=== PATIENT | female | born 1940 | race Caucasian/White ===

== ENCOUNTER 2017-04-23 11:06 | Emergency (ER) | payer MEDICARE, BC ==
[~2017-04-23] VITALS: Ht 170.2 cm; Wt 63.0 kg
[~2017-04-23 11:06] MED LIST: ARIM1TAB PO; ASPI81TA82 PO; CALC600T10 PO; CLAR10TA13 PO; FOSA70TA PO; GABA600T PO; LEFL20 PO; MELO15 PO; VITA20003 PO; ZOCO40TA PO; ZOLP10TA3 PO
[2017-04-23 11:11] VITALS: BP 140/78; PULSE 101; RESP 16; TEMP 97.9; O2SAT 99
[2017-04-23] MEDS ORDERED: ARAV10TA PO (11:27)
[2017-04-23] MEDS ORDERED: GABA600T PO (11:27)
[2017-04-23] MEDS ORDERED: BENI40TA29 PO (11:27)
[2017-04-23] MEDS ORDERED: MAG-TAB PO (11:27)
[2017-04-23] MEDS ORDERED: MELO15TA20 PO (11:27)
[2017-04-23] MEDS ORDERED: HYDR25TA5 PO (11:27)
[2017-04-23] MEDS ORDERED: CLARITAN D (11:27)
[2017-04-23] MEDS ORDERED: CALC1TAB87 PO (11:27)
[2017-04-23] MEDS ORDERED: ATOR20TA15 PO (11:27)
[2017-04-23] MEDS ORDERED: ANAS1TAB PO (11:27)
[2017-04-23] MEDS ORDERED: AMLO2.5T PO (11:27)
[2017-04-23] MEDS ORDERED: FOSA70TA PO (11:27)
[2017-04-23] MEDS ORDERED: AMBI10TA PO (11:27)
[2017-04-23] MEDS ORDERED: KETOROLAC TROMETHAMINE 60 MG/2 ML (IM) VIAL IM ONE (12:00)
[2017-04-23] MEDS ORDERED: ORPHENADRINE INJ 60 MG/2 ML AMP IM ONE (12:00)
[2017-04-23] MEDS ORDERED: NORC5TAB PO ×2 (12:09→12:12)
[2017-04-23] MEDS ORDERED: CYCL10TA PO (12:09)
--- NOTE | 2017-04-23 12:13 | PD ---
HPI Chief Complaint: Back/ Neck Pain or Injury Time Seen by Provider: 11:48 Travel History International Travel<30 days: No Contact w/Intl Traveler<30days: No Traveled to known affect area: No History of Present Illness HPI This is a 76-year-old female here with low back pain worsening over the last 3 days. She reports the pain as aching and radiates down into the right leg. This is similar to her previous to her sciatica. No injury or trauma. Patient has a history of chronic low back pain and currently has a nerve stimulator in place. She denies fever or chills. No abdominal pain or dysuria. No paresthesia or weakness of the extremities. No saddle anesthesia . She reports this pain is similar to her prior acute back pain flares. She is not currently on any pain medication. She is followed by [facility] in [place] for her chronic back pain. Symptom severity is moderate. No aggravating or alleviating factors. PFSH Past Medical History Cancer: Yes (BREAST CANCER) Cardiovascular Problems: Yes (HIGH CHOLESTEROL) Diabetes: No Diminished Hearing: No Endocrine: No Gastrointestinal Disorders: No Genitourinary: No Hepatitis: No Hiatal Hernia: No Hypertension: Yes Immune Disorder: No Medical other: No Musculoskeletal: No Neurologic: No Psychiatric: No Reproductive: No Respiratory: No Thyroid Disease: No Tetanus Vaccination: Unknown ?: Not Past Surgical History Abdominal Surgery: Yes (APPENDECTOMY) AICD: No Body Medical Devices: RIGHT FEMUR JOANIE Cardiac Surgery: No Ear Surgery: No Endocrine Surgery: Yes Eye Surgery: Yes (CATARACT) Gynecologic Surgery: No Joint Replacement: Yes (BILATERAL KNEE REPLACEMENTS) Neurologic Surgery: No Oral Surgery: No Pacemaker: No Thoracic Surgery: No Social History Alcohol Use: No Tobacco Use: No Substance Use: No Allergies-Medications (Allergen,Severity, Reaction): Coded Allergies: No Known Allergies (Unverified Adverse Reaction, Unknown, 04/23/17) Reported Meds & Prescriptions Reported Meds & Active Scripts Active Reported Mag-Delay (Magnesium Chloride) 70 Mg Magnesium Tab 64 Mg PO DAILY Gabapentin 600 Mg Tab 600 Mg PO TID Amlodipine (Amlodipine Besylate) 2.5 Mg Tab 2.5 Mg PO DAILY Hydrochlorothiazide 25 Mg Tab 25 Mg PO DAILY Anastrozole 1 Mg Tab 1 Mg PO DAILY Calcium 600 with Vitamin D (Calcium Carbonate-Cholecalciferol) 600-400 mg-Unit Tab 1 Tab PO DAILY Ambien (Zolpidem Tartrate) 10 Mg Tab 10 Mg PO HS PRN Atorvastatin (Atorvastatin Calcium) 20 Mg Tab 20 Mg PO HS Meloxicam 15 Mg Tab 15 Mg PO DAILY [Claritan D] Arava (Leflunomide) 10 Mg Tab 10 Mg PO DAILY Benicar (Olmesartan) 40 Mg Tab 40 Mg PO DAILY Fosamax (Alendronate Sodium) 70 Mg Tab 70 Mg PO Q7D Review of Systems Except as stated in HPI: all other systems reviewed are Neg General / Constitutional: No: Fever Physical Exam Narrative GENERAL: Alert and well-appearing 76-year-old female. Patient is lying on stretcher. No distress. SKIN: Warm and dry. No areas of warmth or erythema. HEAD: Normocephalic. EYES: No injection or drainage. NECK: Supple CARDIOVASCULAR: Regular rate and rhythm RESPIRATORY: Breath sounds equal bilaterally. No accessory muscle use. GASTROINTESTINAL: Abdomen soft, non-tender, nondistended. MUSCULOSKELETAL: No cyanosis, or edema. Normal strength and sensation in lower extremities. Patient ambulating with cane without difficulty. BACK: Reported generalized low back pain without specific point tenderness. Without obvious deformity. No CVA tenderness. Implanted Nerve stimulator left low back without evidence of overlying infection. Data Data Last Documented VS Vital Signs Date Time Temp Pulse Resp B/P (MAP) Pulse Ox O2 Delivery O2 Flow Rate FiO2 04/23/17 11:11 97.9 101 16 140/78 (98) 99 Orders Orders Ketorolac Inj (Toradol Inj) (04/23/17 12:00) Orphenadrine Inj (Norflex Inj) (04/23/17 12:00) [facility] Medical Decision Making Medical Screen Exam Complete: Yes Emergency Medical Condition: Yes Differential Diagnosis Acute low back pain, sciatica, herniated disc Narrative Course This 76-year-old female here with worsening low back pain over the last 3 days. She has a normal neurologic exam. Her vital signs are stable. She'll be treated for sciatica. He has a follow-up appointment scheduled on Wednesday. She was given a shot of Toradol, Norflex and observed. On reassessment she reports mild symptom improvement. She reports she's had symptom improvement in the past with chronic pain medications and/or muscle relaxers. Diagnosis Primary Impression: Low back pain Qualified Codes: M54.41 - Lumbago with sciatica, right side Referrals: Primary Care Physician Additional Instructions: Continue your meloxicam as directed. Begin taking Flexeril which is a muscle relaxer as needed for muscle spasm. Take Deal as needed for severe pain unrelieved by the meloxicam and Flexeril. Follow-up at your scheduled appointment on Wednesday. Scripts Hydrocodone-Acetaminophen (Deal) 5 Mg-325 Mg Tab 1 TAB PO Q6H Y for PAIN, #12 TAB 0 Refills Prov: Clarissa Davis 04/23/17 Cyclobenzaprine (Flexeril) 10 Mg Tab 10 MG PO TID for Muscle Spasm, #12 TAB 0 Refills Prov: Clarissa Davis 04/23/17 Disposition: 01 DISCHARGE HOME Condition: Stable Clarissa Davis Apr 23, 2017 12:13
== END 2017-04-23 12:39 | disposition home or self-care (01) ==
LOC: PHEFT 11:06
DX: M54.41 Lumbago with sciatica, right side (principal); G89.29 Other chronic pain; E78.00 Pure hypercholesterolemia, unspecified; I10 Essential (primary) hypertension; Z85.3 Personal history of malignant neoplasm of breast
CPT/HCPCS: 96372; 99283; J1885; J2360

== ENCOUNTER 2017-07-14 15:57 | Emergency (ER) | payer MEDICARE, BC ==
[~2017-07-14] VITALS: Ht 165.1 cm; Wt 63.6 kg
[~2017-07-14 15:57] MED LIST changes: +AMBI10TA PO; +AMLO2.5T PO; +ANAS1TAB PO; +ARAV10TA PO; -ARIM1TAB PO; -ASPI81TA82 PO; +ATOR20TA15 PO; +BENI40TA29 PO; +CALC1TAB87 PO; -CALC600T10 PO; -CLAR10TA13 PO; +CLARITAN D; +CYCL10TA PO; +HYDR25TA5 PO; -LEFL20 PO; +MAG-TAB PO; -MELO15 PO; +MELO15TA20 PO; +NORC5TAB PO; -VITA20003 PO; -ZOCO40TA PO; -ZOLP10TA3 PO
[2017-07-14 16:02] VITALS: BP 151/74; PULSE 113; RESP 22; TEMP 97.7; O2SAT 98
[2017-07-14] MEDS ORDERED: MORPHINE SULFATE 4 MG/ML INJ IV PUSH ONE (16:30)
[2017-07-14] MEDS ORDERED: ONDANSETRON ODT 4 MG TAB PO ONE (16:30)
--- NOTE | 2017-07-14 16:34 | PD ---
HPI Chief Complaint: Back/ Neck Pain or Injury Time Seen by Provider: 16:08 Travel History International Travel<30 days: No Contact w/Intl Traveler<30days: No Traveled to known affect area: No History of Present Illness HPI This is a 76-year-old female with chronic lower back pain who presents for evaluation of lower back pain. She reports history of several lumbar fusion surgeries greater than 5 years ago. She reports that she had a spinal cord stimulator implanted in August 2016 at the [facility]. She reports over the past 3 days she has had worsening lower back pain that radiates into the left lower leg. The pain is sharp, constant, worse with movement. Pain is unrelieved with gabapentin, Flexeril, hydrocodone, meloxicam. She reports that 2 days ago she had her first appointment with a new banner painter, Dr. Hamilton in [place]. She denies any acute injury. She reports some chronic urinary incontinence but denies any acute incontinence. She denies any incontinence of stool. She denies any saddle anesthesia. She denies any abdominal pain, dysuria, fevers or chills. She has no other complaints at this time. Her primary care physician is Dr. Darling. [facility] Past Medical History Cancer: Yes (BREAST CANCER, RIGHT LUMPECTOMY) Cardiovascular Problems: Yes (HTN, HYPERCHOLESTEROLEMIA) Diabetes: No Diminished Hearing: No Endocrine: No Gastrointestinal Disorders: No Genitourinary: No Hepatitis: No Hiatal Hernia: No Hypertension: Yes Immune Disorder: No Musculoskeletal: No Neurologic: No Psychiatric: No Reproductive: No Respiratory: No Thyroid Disease: No ?: Not Past Surgical History Abdominal Surgery: Yes (APPENDECTOMY) AICD: No Body Medical Devices: RIGHT FEMUR JOANIE Cardiac Surgery: No Ear Surgery: No Endocrine Surgery: Yes Eye Surgery: Yes (CATARACT) Gynecologic Surgery: No Joint Replacement: Yes (BILATERAL KNEE REPLACEMENTS) Neurologic Surgery: No Oral Surgery: No Pacemaker: No Thoracic Surgery: No Other Surgery: Yes Social History Alcohol Use: No Tobacco Use: No Substance Use: No Allergies-Medications (Allergen,Severity, Reaction): Coded Allergies: No Known Allergies (Unverified Adverse Reaction, Unknown, 07/14/17) Reported Meds & Prescriptions Reported Meds & Active Scripts Active Lidocaine Patch 12 HR (Lidocaine) 5 % Patch 1 Patch TOPICAL DAILY Remove patch after 12 hours [place] (Hydrocodone-Acetaminophen) 5 Mg-325 Mg Tab 1 Tab PO Q6H PRN Flexeril (Cyclobenzaprine HCl) 10 Mg Tab 10 Mg PO TID Reported Gabapentin 600 Mg Tab 600 Mg PO TID Amlodipine (Amlodipine Besylate) 2.5 Mg Tab 2.5 Mg PO DAILY Hydrochlorothiazide 25 Mg Tab 25 Mg PO DAILY Anastrozole 1 Mg Tab 1 Mg PO DAILY Calcium 600 with Vitamin D (Calcium Carbonate-Cholecalciferol) 600-400 mg-Unit Tab 1 Tab PO DAILY Ambien (Zolpidem Tartrate) 10 Mg Tab 10 Mg PO HS PRN Atorvastatin (Atorvastatin Calcium) 20 Mg Tab 20 Mg PO HS Meloxicam 15 Mg Tab 15 Mg PO DAILY [Claritan D] Arava (Leflunomide) 10 Mg Tab 10 Mg PO DAILY Benicar (Olmesartan) 40 Mg Tab 40 Mg PO DAILY Fosamax (Alendronate Sodium) 70 Mg Tab 70 Mg PO Q7D Review of Systems Except as stated in HPI: all other systems reviewed are Neg Physical Exam Narrative GENERAL: Well-developed well-nourished female who appears uncomfortable on initial examination. SKIN: Warm and dry. Old surgical scars noted on the back. No rash. HEAD: Atraumatic. Normocephalic. EYES: Pupils equal and round. No scleral icterus. No injection or drainage. ENT: No nasal bleeding or discharge. Mucous membranes pink and moist. NECK: Trachea midline. No JVD. CARDIOVASCULAR: Regular rate and rhythm. No murmur appreciated. RESPIRATORY: No accessory muscle use. Clear to auscultation. Breath sounds equal bilaterally. GASTROINTESTINAL: Abdomen soft, non-tender, nondistended. Hepatic and splenic margins not palpable. MUSCULOSKELETAL: No obvious deformities. There is some tenderness to palpation to the left lumbosacral region. There is no tenderness to palpation along the cervical thoracic lumbar midline spine. The patient maintains 5 out of 5 muscle strength on hip flexion and extension, leg flexion and extension, dorsi and plantar flexion bilaterally. There is no lower extremity edema. 2+ dorsalis pedis pulse bilaterally. 2+ posterior tibial pulse bilaterally. Negative Homans bilaterally. NEUROLOGICAL: Awake and alert. No obvious cranial nerve deficits. Motor grossly within normal limits. Normal speech. Data Data Last Documented VS Vital Signs Date Time Temp Pulse Resp B/P (MAP) Pulse Ox O2 Delivery O2 Flow Rate FiO2 07/14/17 16:35 17 07/14/17 16:02 97.7 113 151/74 (99) [address] Lumb Spine W/O Contrast (07/14/17 ) Complete Blood Count With Diff (07/14/17 16:29) Basic Metabolic Panel (Bmp) (07/14/17 16:29) Iv Access Insert/Monitor (07/14/17 16:29) Morphine Inj (Morphine Inj) (07/14/17 16:30) Ondansetron Odt (Zofran Odt) (07/14/17 16:30) Orphenadrine Inj (Norflex Inj) (07/14/17 19:30) Dexamethasone Inj (Decadron Inj) (07/14/17 19:30) Ed Discharge Order (07/14/17 19:27) Labs Laboratory Tests Test 07/14/17 16:50 White Blood Count 5.1 TH/MM3 Red Blood Count 4.12 MIL/MM3 Hemoglobin 13.0 GM/DL Hematocrit 38.1 % Mean Corpuscular Volume 92.5 FL Mean Corpuscular Hemoglobin 31.4 PG Mean Corpuscular Hemoglobin Concent 34.0 % Red Cell Distribution Width 14.2 % Platelet Count 271 TH/MM3 Mean Platelet Volume 8.9 FL Neutrophils (%) (Auto) 71.7 % Lymphocytes (%) (Auto) 17.7 % Monocytes (%) (Auto) 9.4 % Eosinophils (%) (Auto) 0.2 % Basophils (%) (Auto) 1.0 % Neutrophils # (Auto) 3.6 TH/MM3 Lymphocytes # (Auto) 0.9 TH/MM3 Monocytes # (Auto) 0.5 TH/MM3 Eosinophils # (Auto) 0.0 TH/MM3 Basophils # (Auto) 0.1 TH/MM3 CBC Comment AUTO DIFF Differential Comment AUTO DIFF CONFIRMED Blood Urea Nitrogen 19 MG/DL Creatinine 0.92 MG/DL Random Glucose 98 MG/DL Calcium Level 9.4 MG/DL Sodium Level 135 MEQ/L Potassium Level 3.8 MEQ/L Chloride Level 98 MEQ/L Carbon Dioxide Level 26.8 MEQ/L Anion Gap 10 MEQ/L Estimat Glomerular Filtration Rate 60 ML/MIN MDM Medical Decision Making Medical Screen Exam Complete: Yes Emergency Medical Condition: Yes Medical Record Reviewed: Yes Differential Diagnosis Herniated nucleus pulposus, spinal stenosis, compression fracture, piriformis syndrome, degenerative disc disease Narrative Course Physical examination is reassuring to the patient has no tenderness to palpation along the midline spine, her pain seems to be more in the left upper gluteal/lumbosacral region. Motor function is normal, she has excellent strength in her lower extremities. She has no lower extremity edema and excellent peripheral pulses. Plan is for basic lab work, CT of the lumbar spine. She was given morphine and Zofran. CT of the lumbar spine reveals CONCLUSION: 1. Postsurgical change with transpedicular screws at the L1-S1 levels. There is also anterior stabilization hardware seen at the L5-S1 level. There is lucency seen around the S1 transpedicular screws which could suggest motion at some point. 2. Alignment abnormality with associated degenerative change with posterior subluxation of L1 on L2 and anterior subluxation of L4 and L5. Surgical hardware does traverse these levels. 3. Prominent calcification seen in the anterior epidural space at the L1, L2, and L5 levels likely secondary to hypertrophic change causing impressions on the thecal sac being most prominent at the L1 level. 4. Large superficial fluid collection in the subcutaneous fat extending from the L1-S1 levels. This likely represents a large seroma. She has evidence of a superficial fluid collection in the subcutaneous fat at the L5-S1 levels. This is palpable on examination and it is nontender. There is no erythema or fluctuance or induration to suggest infectious process. She denies any recent surgeries. She does report that 2 days ago her pain management physician did injections more than her gluteal region but not in her lumbar midline region which would not explain this. At this point time the plan will be to have the patient follow-up with her primary care physician and banner painter. She will be given dose of Decadron and Norflex prior to discharge. She currently has several medications for pain control including meloxicam, gabapentin, hydrocodone acetaminophen, Flexeril. She will be discharged with Lidoderm patches. Diagnosis Primary Impression: Lumbosacral radiculopathy Additional Instructions: Medication as needed. Follow-up closely with your primary care physician and banner painter. Return for any emergent medical conditions. Med/Other Pt SpecificInfo: Prescription(s) given Scripts Lidocaine Patch 12 HR (Lidocaine Patch 12 HR) 5 % Patch 1 PATCH TOPICAL DAILY for Pain Management, #1 BOX 1 Refill Remove patch after 12 hours Prov: Kehinde Saavedra MD 07/14/17 Disposition: 01 DISCHARGE HOME Condition: Stable Felton Wilkes July 14, 2017 16:34
[2017-07-14 16:35] VITALS: RESP 17
[2017-07-14 17:06] LABS: AUTOMATED NEUTROPHIL # 3.6 TH/MM3 (1.8-7.7); BASOPHIL # 0.1 TH/MM3 (0-0.2); EOSINOPHIL % 0.2 % (0.0-4.0); HEMATOCRIT 38.1 % (35.0-46.0); LYMPH % 17.7 % (9.0-44.0); LYMPHOCYTE # 0.9 TH/MM3 (1.0-4.8); MEAN CELL VOLUME 92.5 FL (80.0-100.0); MEAN CORPUSCULAR HEMOGLOBIN 31.4 PG (27.0-34.0); MEAN PLATELET VOLUME 8.9 FL (7.0-11.0); MONO % 9.4 % (0.0-8.0); MONOCYTE # 0.5 TH/MM3 (0-0.9); NEUT % 71.7 % (16.0-70.0); PLATELET COUNT 271 TH/MM3 (150-450); RED BLOOD COUNT 4.12 MIL/MM3 (4.00-5.30); RED CELL DISTRIBUTION WIDTH 14.2 % (11.6-17.2); WHITE BLOOD COUNT 5.1 TH/MM3 (4.0-11.0)
[2017-07-14 17:33] LABS: BICARBONATE 26.8 MEQ/L (21.0-32.0); CALCIUM 9.4 MG/DL (8.5-10.1); CREATININE 0.92 MG/DL (0.50-1.00)
--- NOTE | 2017-07-14 19:16 | RADRPT ---
EXAM DATE/TIME: 07/14/2017 18:25 [facility] COMPARISON: No previous studies available for comparison. INDICATIONS : Back pain RADIATION DOSE: 35.05 CTDIvol (mGy) MEDICAL HISTORY : Cardiovascular disease. Breast cancer SURGICAL HISTORY : Right lumpectomy, lumbar,hip. ENCOUNTER: Initial ACUITY: 3 days PAIN SCALE: 10/10 LOCATION: Bilateral Lumbar spine TECHNIQUE: Volumetric scanning of the lumbar spine was performed. Multiplanar reconstructions in the sagittal, coronal and oblique axial planes were performed. Using automated exposure control and adjustment of the mA and/or kV according to patient size, radiation dose was kept as low as reasonably achievable t o obtain optimal diagnostic quality images. DICOM format image data is available electronically for review and comparison. FINDINGS: VERTEBRAE: There are transpedicular screws at the L1-S1 levels. There is some lucency seen around the S1 screws bilaterally. There is anterior hardware at the L5-S1 level with screws in the inferior aspect of L5 a nd the superior aspect of S1 with stabilization device at the L5-S1 disc level. There are stabilizati on devices at the L2-L3 and L4-L5 disc levels. There is 7 mm of posterior subluxation of L1 on L2. Th ere is minimal anterior subluxation of L4 on L5. There is a minimal dextrocurvature of the upper lumb ar spine with the apex at the L2-L3 level and a mild compensatory levocurvature of the lower lumbar s pine with the apex at the L5 level. There is sclerosis seen throughout the L1 and L2 vertebral bodies there is also sclerosis at the endplates at the T11-T12 and L5-S1 levels. There is a fluid collection seen in the superficial subcutaneous fat superficial to the lumbar spine erector spinae muscles measuring approximately 8.6 cm in transverse dimension and 2.6 cm in AP dimens ion and extending over a 12.4 cm length. This likely represents a seroma although an old hematoma or abscess cannot be ruled out in the correct clinical situation. T12-L1: There is a vacuum phenomenon. The disc demonstrates decreased height. A significant impression on the thecal sac is not seen from the disc. There is increased density seen in the anterior epidural space posterior to the L1 vertebral body. This is seen predominantly on the left side. This measures appro ximately 2.6 x 1.3 x 1.5 cm. A small portion does extend into the right anterior epidural space. The density of this suggests this is calcified L1-L2: Again noted is the posterior subluxation of L1 on L2. There is chronic change at the anterior inferio r aspect of the L1 vertebral body. The disc demonstrates decreased height. Significant bulging is not seen. There is a vacuum phenomenon. The patient is status post L2 laminectomy. The thecal sac has a normal diameter. No evidence of disc bulge or protrusion. The neural foramina are patent bilaterall y. L2-L3: There is stabilization device. There is calcification seen at the disc level. This also hypertrophic change seen along the right lateral anterior epidural space posterior to the L2 vertebral body. This causes a moderate impression on the anterior right side of the thecal sac. The patient is status post laminectomy. There is some narrowing of the right neural foramina. The left neural foramina is paten t. L3-L4: There is mild posterior osteophytic ridging. Significant stenosis is not seen. The patient is status post laminectomy. The thecal sac has a normal diameter. No evidence of disc bulge or protrusion. Th e neural foramina are patent bilaterally. L4-L5: Again noted is the anterior subluxation of L4 on L5. Significant stenosis is not seen. Significant im pression of thecal sac is not seen. The patient is status post laminectomy. The neural foramina are p atent bilaterally. L5-S1: There is posterior osteophytic ridging and hypertrophic change especially at the anterior right later al epidural space. The patient is status post laminectomy. Significant stenosis is not seen. The jerry ral foramina are patent bilaterally. CONCLUSION: 1. Postsurgical change with transpedicular screws at the L1-S1 levels. There is also anterior stabili zation hardware seen at the L5-S1 level. There is lucency seen around the S1 transpedicular screws wh ich could suggest motion at some point. 2. Alignment abnormality with associated degenerative change with posterior subluxation of L1 on L2 a nd anterior subluxation of L4 and L5. Surgical hardware does traverse these levels. 3. Prominent calcification seen in the anterior epidural space at the L1, L2, and L5 levels likely se condary to hypertrophic change causing impressions on the thecal sac being most prominent at the L1 l evel. 4. Large superficial fluid collection in the subcutaneous fat extending from the L1-S1 levels. This l ikely represents a large seroma. Hilario Russell MD on July 14, 2017 at 18:55 Board Certified Radiologist. This report was verified electronically.
[2017-07-14] MEDS ORDERED: LIDO1PAD52 TOPICAL (19:28)
[2017-07-14] MEDS ORDERED: ORPHENADRINE INJ 60 MG/2 ML AMP IM ONE (19:30)
[2017-07-14] MEDS ORDERED: DEXAMETHASONE SOD PHOS 4 MG/ML VIAL IV PUSH ONE (19:30)
== END 2017-07-14 20:30 | disposition home or self-care (01) ==
LOC: NEPE 15:57
DX: M54.17 Radiculopathy, lumbosacral region (principal); I10 Essential (primary) hypertension; E78.00 Pure hypercholesterolemia, unspecified; Z79.811 Long term (current) use of aromatase inhibitors; Z85.3 Personal history of malignant neoplasm of breast
CPT/HCPCS: 72131; 80048; 85025; 96372; 96374; 96375; 99284; J1100; J2270; J2360

== ENCOUNTER 2018-01-09 17:33 | Inpatient (IN) ==
[2018-01-09] MEDS: Sod Chloride 0.9% Inj 1,000 ML IV.SIG SCH ×2 (18:44→19:51)
[2018-01-09 18:53] LABS: Baso # (Auto) 0.1 th/mm3 (0.0-0.2); Baso % (Auto) 0.8 % (0.0-2.0); Eos % (Auto) 0.1 % (0.0-4.0); Hemoglobin 11.9 gm/dL (11.6-15.3); Lymph # (Auto) 0.3 th/mm3 (1.0-4.8); Lymph % (Auto) 2.6 % (9.0-44.0); Mean Corpuscular HGB Conc 32.2 % (32.0-36.0); Mean Corpuscular Hemoglobin 30.2 pg (27.0-34.0); Mean Corpuscular Volume 93.8 fL (80.0-100.0); Mean Platelet Volume 8.9 fL (7.0-11.0); Mono # (Auto) 0.1 th/mm3 (0.0-0.9); Mono % (Auto) 1.4 % (0.0-8.0); Neut # (Auto) 10.1 th/mm3 (1.8-7.7); Neut % (Auto) 95.1 % (16.0-70.0); Platelet Count 242 th/mm3 (150-450); Red Blood Count 3.94 mil/mm3 (4.00-5.30); Red Cell Distribution Width 14.1 % (11.6-17.2); White Blood Count 10.6 th/mm3 (4.0-11.0)
[2018-01-09 19:02] LABS: Chloride 97 meq/L (98-107); Potassium 5.3 meq/L (3.5-5.1); Sodium 130 meq/L (136-145)
[2018-01-09 19:05] LABS: Albumin 2.9 g/dL (3.4-5.0); Anion Gap 10 meq/L (5-15); Calcium 8.2 mg/dL (8.5-10.1); Carbon Dioxide 23.3 meq/L (21.0-32.0); Glucose,Random 107 mg/dL (74-106); Magnesium 1.9 mg/dL (1.5-2.5)
[2018-01-09 19:06] LABS: Blood Urea Nitrogen 33 mg/dL (7-18)
[2018-01-09 19:08] LABS: Alanine Aminotransferase 28 U/L (10-53); Aspartate Aminotransferase 34 U/L (15-37)
[2018-01-09 19:09] LABS: Glomerular Filtration Rate 19 mL/min (>89)
[2018-01-09 19:10] LABS: Total Protein 5.9 g/dL (6.4-8.2)
[2018-01-09 19:11] LABS: Alkaline Phosphatase 45 U/L (45-117)
[2018-01-09 19:50] LABS: Bilirubin,Urine Negative (Negative); Clarity,Urine Clear (Clear); Color,Urine Yellow (Yellw/Straw); Glucose,Urine (UA) Negative (Negative); Leukocyte Esterase,Urine Trace (Negative); Nitrite,Urine Negative (Negative); PH,Urine 5.5 (5.0-8.5); Urobilinogen,Urine 0.2 mg/dL (Less than 2)
--- NOTE | 2018-01-09 20:02 | ED ---
HPI General Chief complaint: Weakness Stated complaint: weakness Time Seen by Provider: 01/09/18 18:27 Source: patient Mode of arrival: EMS Limitations: no limitations History of Present Illness MD Complaint: Reports generalized weakness Onset (ago): hour(s) (Onset during the middle of the night last night) Duration: constant Location: Reports generalized Migration: Reports none Severity: severe Relieving factors: none Exacerbating factors: none Context: Reports recent illness (Recent urinary tract infection. She has completed her antibiotics.) Associated symptoms: Reports other (Syncope during the night last night. Somnolence today.) Related Data Home Medications Medication Instructions Recorded Confirmed Arava 10 mg PO DAILY 12/05/17 01/09/18 alendronate [Fosamax] 70 mg PO QWEEK 12/05/17 01/09/18 amlodipine 2.5 mg PO DAILY 12/05/17 01/09/18 anastrozole 1 mg PO DAILY 12/05/17 01/09/18 atorvastatin [Lipitor] 20 mg PO DAILY 12/05/17 01/09/18 calcium carbonate-vitamin D3 1 tab PO DAILY 12/05/17 01/09/18 [Calcium 600 + D(3)] ergocalciferol (vitamin D2) 2,000 unit PO QWEEK 12/05/17 01/09/18 [Vitamin D2] gabapentin 600 mg PO TID 12/05/17 01/09/18 hydrochlorothiazide 25 mg PO DAILY 12/05/17 01/09/18 loratadine-pseudoephedrine 1 tab PO DAILY 12/05/17 01/09/18 [Claritin-D 24 Hour] meloxicam 15 mg PO DAILY 12/05/17 01/09/18 olmesartan [Benicar] 40 mg PO DAILY 12/05/17 01/09/18 oxycodone-acetaminophen 1 tab PO Q4-6H PRN 12/05/17 01/09/18 zolpidem [Ambien] 10 mg PO HS 12/05/17 01/09/18 Allergies Allergy/AdvReac Type Severity Reaction Status Date / Time No Known Allergies Allergy Verified 12/05/17 13:44 Review of Systems ROS: all other systems reviewed are negative [facility] Medical History Medical History Arthritis (Acute) Back pain (Acute) Cancer (Acute) Hyperlipidemia (Acute) Hypertension (Acute) Neuropathy (Acute) Social History Social History Substance History: No History of Abuse Second Hand Smoke Exposure: No Smoking Status: Never smoker How Often Do You Have a Drink Containing Alcohol: Monthly or less Recent Travel in [facility] within the Last 8 Weeks: No Recent Out of Country Travel within the Last 8 Weeks: No Immunization History Tetanus Immunization: Unsure Exam Const General: cooperative, healthy appearing, comfortable, no acute distress and well developed Orientation: alert, awake and oriented x3 HENMT Head: normal to inspection, normocephalic and atraumatic Mouth: moist mucous membranes abnormal (Mucous membranes are dry) Eyes Alignment and Position: alignment normal and position abnormal Conjunctivae: conjunctivae normal Sclera: sclerae normal EOM: EOM intact bilaterally Neck Neck: normal visual inspection and full ROM Chest Chest: normal inspection of the chest Resp Effort & Inspection: normal respiratory effort and able to speak in complete sentences Auscultation: clear to auscultation bilaterally Cardio Rate: regular rate Rhythm: regular rhythm GI Inspection: normal to inspection Palpation: soft Back/Spine/Pelvis Cervical Spine: cervical ROM normal Thoracic/Lumbar Spine: thoraco-lumbar ROM normal Skin General: no rashes or lesions noted, turgor normal and dry skin Neuro General: alert, awake, oriented x3, moves all extremities and CN's II-XI intact bilaterally Extrem General: normal to inspection and full ROM Psych Appearance: grossly normal Mental Status: mental status grossly normal Speech and Movement: speech and movement normal Mood: congruent mood Affect: normal affect Attitude: cooperative Thought Process: normal Thought Content: normal Judgment: judgment good Course Consultations Consultation #1: Dr. Umanzor requests admit to the ICU here. Initial Documented Vital Signs Temperature 98.3 F 01/09/18 18:23 Pulse Rate 103 H 01/09/18 18:23 Respiratory Rate 15 01/09/18 18:23 Blood Pressure 77/36 L 01/09/18 18:23 Pulse Oximetry 88 L 01/09/18 18:23 Last Documented Vital Signs Temperature 98.3 F 01/09/18 18:23 Pulse Rate 94 H 01/09/18 22:00 Respiratory Rate 16 01/09/18 22:00 Blood Pressure 84/44 L 01/09/18 22:00 Pulse Oximetry 99 01/09/18 22:00 Critical Care Time Critical Care Time: Yes Total Critical Care Time: 45 Attestation: Time to perform other separately billable procedures was not included in the critical care time. My time did not include minutes spent treating any other patients simultaneously or on activities that did not directly contribute to the patient's treatment. The services I provided to this patient were to treat and/or prevent clinically significant deterioration due to syncope, hypotension, rule out sepsis I provided critical care services requiring my management, as noted below: Chart data review, documentation time, medication orders and management, vital sign assessments/reviewing monitor data, ordering and reviewing lab tests, ordering and interpreting/reviewing x-rays and diagnostic studies, care of the patient and discussion of the patient with the admitting physicians Medical Decision Making MDM Narrative Medical decision making narrative: She is being admitted to the ICU here in [place] for further evaluation and treatmentShe had a syncopal episode. She was able to get herself back to the bed. Her neighbors checked on her today at 4 PM and found her still in the bed. [facility] was called and she was brought to the hospital. She is complaining with profound weakness. She states that she had a recent urinary tract infection which was treated with antibiotics. However, she believes that she still has a urinary tract infection. She reports no recent changes to blood pressure medication. She reports no fever. She denies vomiting or diarrhea. On arrival here, the patient's blood pressure was in the 70s systolic. A septic workup was initiated. Fluid resuscitation was initiated. This patient remains hypotensive even following 2 L of IV fluids. No source of infection has been found. This does not appear to be related to sepsis. She does have BRUCE. Medical Screen Exam Complete: Yes Emergency Medical Condition: Yes Differential Diagnosis Differential Diagnosis: My differential diagnosis of hypotension includes but is not limited to acute blood loss, gastroenteritis, medication effect Lab Data Lab results reviewed: Yes I reviewed the patient's lab results. Result diagrams: 01/09/18 18:42 01/09/18 18:42 Lab Results 01/09/18 01/09/18 01/09/18 Range/Units 18:42 18:42 19:20 CBC w Diff Auto diff final WBC 10.6 (4.0-11.0) th/mm3 RBC 3.94 L (4.00-5.30) mil/mm3 Hgb 11.9 (11.6-15.3) gm/dL Hct 37.0 (35.0-46.0) % MCV 93.8 (80.0-100.0) fL MCH 30.2 (27.0-34.0) pg MCHC 32.2 (32.0-36.0) % RDW 14.1 (11.6-17.2) % Plt Count 242 (150-450) th/mm3 MPV 8.9 (7.0-11.0) fL Neut % (Auto) 95.1 H (16.0-70.0) % Lymph % (Auto) 2.6 L (9.0-44.0) % [place] % (Auto) 1.4 (0.0-8.0) % Eos % (Auto) 0.1 (0.0-4.0) % Baso % (Auto) 0.8 (0.0-2.0) % Neut # (Auto) 10.1 H (1.8-7.7) th/mm3 Lymph # (Auto) 0.3 L (1.0-4.8) th/mm3 [place] # (Auto) 0.1 (0.0-0.9) th/mm3 Eos # (Auto) 0.0 (0.0-0.4) th/mm3 Baso # (Auto) 0.1 (0.0-0.2) th/mm3 WBC Differential . Differential Comment . Sodium 130 L (136-145) meq/L Potassium 5.3 H (3.5-5.1) meq/L Chloride 97 L (98-107) meq/L Carbon Dioxide 23.3 (21.0-32.0) meq/L Anion Gap 10 (5-15) meq/L BUN 33 H (7-18) mg/dL Creatinine 2.50 H (0.50-1.00) mg/dL Estimated GFR 19 L (>89) mL/min Random Glucose 107 H (74-106) mg/dL Lactic Acid (0.4-2.0) mmol/L Calcium 8.2 L (8.5-10.1) mg/dL Magnesium 1.9 (1.5-2.5) mg/dL Total Bilirubin 0.5 (0.2-1.0) mg/dL AST 34 (15-37) U/L ALT 28 (10-53) U/L Alkaline Phosphatase 45 (45-117) U/L Troponin I Less than 0.02 L (0.02-0.05) ng/mL Total Protein 5.9 L (6.4-8.2) g/dL Albumin 2.9 L (3.4-5.0) g/dL Urine Color Yellow (Yellw/Straw) Urine Clarity Clear (Clear) Urine pH 5.5 (5.0-8.5) Ur Specific [place] 1.010 (1.002-1.035) Urine Protein Trace (Neg-Trace) mg/dL Urine Glucose (UA) Negative (Negative) mg/dL Urine Ketones Negative (Negative) mg/dL Urine Occult Blood Negative (Negative) Urine Nitrate Negative (Negative) Urine Bilirubin Negative (Negative) Urine Urobilinogen 0.2 (Less than 2) mg/dL Ur Leukocyte Esterase Trace H (Negative) Urine RBC 0-3 (0-3) /hpf Urine WBC 0-5 (0-5) /hpf Ur Squamous Epith Cells 0-5 (0-5) /hpf Micro UA Comment Culture not ind Ur Microscopic Review Microscopic reviewed Urine Culture Comments Culture not ind 01/09/18 Range/Units 19:40 CBC w Diff WBC (4.0-11.0) th/mm3 RBC (4.00-5.30) mil/mm3 Hgb (11.6-15.3) gm/dL Hct (35.0-46.0) % MCV (80.0-100.0) fL MCH (27.0-34.0) pg MCHC (32.0-36.0) % RDW (11.6-17.2) % Plt Count (150-450) th/mm3 MPV (7.0-11.0) fL Neut % (Auto) (16.0-70.0) % Lymph % (Auto) (9.0-44.0) % [place] % (Auto) (0.0-8.0) % Eos % (Auto) (0.0-4.0) % Baso % (Auto) (0.0-2.0) % Neut # (Auto) (1.8-7.7) th/mm3 Lymph # (Auto) (1.0-4.8) th/mm3 [place] # (Auto) (0.0-0.9) th/mm3 Eos # (Auto) (0.0-0.4) th/mm3 Baso # (Auto) (0.0-0.2) th/mm3 WBC Differential Differential Comment Sodium (136-145) meq/L Potassium (3.5-5.1) meq/L Chloride (98-107) meq/L Carbon Dioxide (21.0-32.0) meq/L Anion Gap (5-15) meq/L BUN (7-18) mg/dL Creatinine (0.50-1.00) mg/dL Estimated GFR (>89) mL/min Random Glucose (74-106) mg/dL Lactic Acid 1.5 (0.4-2.0) mmol/L Calcium (8.5-10.1) mg/dL Magnesium (1.5-2.5) mg/dL Total Bilirubin (0.2-1.0) mg/dL AST (15-37) U/L ALT (10-53) U/L Alkaline Phosphatase (45-117) U/L Troponin I (0.02-0.05) ng/mL Total Protein (6.4-8.2) g/dL Albumin (3.4-5.0) g/dL Urine Color (Yellw/Straw) Urine Clarity (Clear) Urine pH (5.0-8.5) Ur Specific [place] (1.002-1.035) Urine Protein (Neg-Trace) mg/dL Urine Glucose (UA) (Negative) mg/dL Urine Ketones (Negative) mg/dL Urine Occult Blood (Negative) Urine Nitrate (Negative) Urine Bilirubin (Negative) Urine Urobilinogen (Less than 2) mg/dL Ur Leukocyte Esterase (Negative) Urine RBC (0-3) /hpf Urine WBC (0-5) /hpf Ur Squamous Epith Cells (0-5) /hpf Micro UA Comment Ur Microscopic Review Urine Culture Comments Imaging Data Attestation: I personally reviewed and interpreted this imaging study as follows : Radiologist's impression: Chest X-Ray 01/09/18 21:17 CONCLUSION: Mild basilar density, probably atelectasis. No significant effusion. No pneumothorax. ECG Data EKG Prior to Arrival: No Attestation: I personally reviewed and interpreted this ECG as follows: Prior ECG tracings: not available for review Discharge Plan Discharge Disposition Patient Disposition: 30 Still Patient Discharge Details Diagnosis: Hypotension Physicians Team ED Provider: Mirella Sellers Primary Care Provider: Emigdio Darling Attending Provider: Luisa Umanzor Discharge Interventions Interventions: Vital Signs Last Done: 01/09/18 20:03 Status ED Status: Admitted Patient
[2018-01-09 20:08] LABS: RBC,Urine 0-3 /hpf (0-3); Squamous Epithelial Cell,Urine 0-5 /hpf (0-5); WBC,Urine 0-5 /hpf (0-5)
[2018-01-09] MEDS ORDERED: Bisacodyl 10 MG Supp RECTAL PRN (21:18)
[2018-01-09] MEDS ORDERED: Acetaminophen 325 MG Tablet PO PRN (21:18)
[2018-01-09] MEDS: Sod Chloride 0.9% Inj 1,000 ML IV.CONT SCH (21:35)
--- NOTE | 2018-01-09 21:39 | XR ---
EXAM DATE: 01/09/2018 9:29 PM EST AGE/SEX: 77 years / Female INDICATIONS: Shortness of breath. CLINICAL DATA: This is the patient's initial encounter. Patient reports that signs and symptoms have been present for 1 day and indicates a pain score of 0/10. MEDICAL/SURGICAL HISTORY: Carcinoma, breast. . Lumpectomy. COMPARISON: No prior exams available for comparison. FINDINGS: Mild basilar airspace disease. No significant effusion. No pneumothorax. Heart size normal. Stimulato r wires overlie lower thoracic spine. . CONCLUSION: Mild basilar density, probably atelectasis. No significant effusion. No pneumothorax. Electronically signed by: Dao Monge MD 01/09/2018 9:38 PM EST
--- NOTE | 2018-01-09 22:32 | CT ---
EXAM DATE: 01/09/2018 10:09 PM EST AGE/SEX: 77 years / Female INDICATIONS: Weakness. CLINICAL DATA: This is the patient's initial encounter. Patient reports that signs and symptoms have been present for 1 day and indicates a pain score of 5/10. MEDICAL/SURGICAL HISTORY: . Arthritis. Back pain. Cancer. Hyperlipidemia. Hypertension. Neuropathy. . Hip. Appendectomy. Back. Total knee replacement. RADIATION DOSE: 58.27 CTDI (mGy) COMPARISON: No prior exams available for comparison. TECHNIQUE: CT of the head without contrast. Using automated exposure control and adjustment of the mA and/or kV according to patient size, radiation dose was kept as low as reasonably achievable to ob tain optimal diagnostic quality images. DICOM format image data is available electronically for revi ew and comparison. FINDINGS: Cerebrum: The ventricles are normal for age. No evidence of midline shift, mass lesion, hemorrhage or acute infarction. No extraaxial fluid collections are seen. Posterior Fossa: The cerebellum and brainstem are intact. The 4th ventricle is midline. The cerebe llopontine angle is unremarkable. Extracranial: The visualized portion of the orbits is intact. Skull: The calvaria is intact. No evidence of skull fracture. CONCLUSION: 1. No acute intracranial abnormalities. . Electronically signed by: Dao Monge MD 01/09/2018 10:31 PM EST
[2018-01-10] MEDS ORDERED: Sod Chloride 0.9% Inj 1,000 ML IV.SIG ONE (00:12)
[2018-01-10] MEDS: Chlorhexidine Gluconate 2% 1 Pack (2 Cloths) TOPICAL SCH (03:08)
[2018-01-10] MEDS ORDERED: Chlorhexidine Gluconate 2% 1 Pack (2 Cloths) TOPICAL PRN (04:00)
[2018-01-10 05:44] LABS: Baso % (Auto) 0.6 % (0.0-2.0); Eos # (Auto) 0.1 th/mm3 (0.0-0.4); Eos % (Auto) 0.9 % (0.0-4.0); Hematocrit 28.9 % (35.0-46.0); Hemoglobin 9.3 gm/dL (11.6-15.3); Lymph # (Auto) 0.6 th/mm3 (1.0-4.8); Lymph % (Auto) 9.7 % (9.0-44.0); Mean Corpuscular HGB Conc 32.4 % (32.0-36.0); Mean Corpuscular Hemoglobin 30.4 pg (27.0-34.0); Mean Corpuscular Volume 93.7 fL (80.0-100.0); Mean Platelet Volume 9.1 fL (7.0-11.0); Mono # (Auto) 0.4 th/mm3 (0.0-0.9); Mono % (Auto) 5.9 % (0.0-8.0); Neut # (Auto) 5.1 th/mm3 (1.8-7.7); Neut % (Auto) 82.9 % (16.0-70.0); Platelet Count 189 th/mm3 (150-450); Red Blood Count 3.08 mil/mm3 (4.00-5.30); Red Cell Distribution Width 13.9 % (11.6-17.2); White Blood Count 6.2 th/mm3 (4.0-11.0)
[2018-01-10 06:06] LABS: Albumin 2.3 g/dL (3.4-5.0); Calcium 7.2 mg/dL (8.5-10.1); Carbon Dioxide 20.2 meq/L (21.0-32.0); Potassium 4.3 meq/L (3.5-5.1); Total Protein 4.8 g/dL (6.4-8.2)
[2018-01-10] MEDS: Sod Chloride 0.9% Inj 1,000 ML IV.CONT SCH ×2 (08:42→17:40)
[2018-01-10] MEDS: Senna/Docusate Sodium 8.6/50 MG Tablet PO SCH ×2 (08:43→21:18)
--- NOTE | 2018-01-10 12:09 | ECG ---
Date Performed: 01/09/2018 Time Performed: 19:10:11 PTAGE: 77 years EKG: Sinus rhythm LOW QRS VOLTAGE ABNORMAL ECG NO PREVIOUS TRACING DOCTOR: Emanuel Muhammad Interpretating Date/Time 01/10/2018 12:04:59
--- NOTE | 2018-01-10 12:20 | ECHRPT ---
Indication: SYNCOPE CONCLUSIONS Normal left ventricular size. Wall thickness is normal. The left ventricular systolic function is normal with an estimated ejection fraction in the range of 55-60%. Trace mitral valve regurgitation. Aortic valve sclerosis is present. There is trace tricuspid valve regurgitation. BP: / HR: Rhythm: MEASUREMENTS (Male / Female) Normal Values Technical Quality: 2D ECHO LV Diastolic Diameter PLAX 4.8 cm 4.2 - 5.9 / 3.9 - 5.3 cm LV Systolic Diameter PLAX 3.6 cm IVS Diastolic Thickness 0.7 cm 0.6 - 1.0 / 0.6 - 0.9 cm LVPW Diastolic Thickness 1.0 cm 0.6 - 1.0 / 0.6 - 0.9 cm LV Relative Wall Thickness 0.4 RV Internal Dim ED PLAX 2.4 cm LVOT Diameter 1.8 cm Aortic Root Diameter 2.0 cm LA Systolic Diameter LX 3.4 cm 3.0 - 4.0 / 2.7 - 3.8 cm LV Ejection Fraction MOD BP 55.0 % >= 55 % LV Ejection Fraction MOD 4C 65.4 % LV Ejection Fraction 4C AL 68.1 % LV Ejection Fraction MOD 2C 46.3 % LV Ejection Fraction 2C AL 49.8 % M-MODE Aortic Root Diameter MM 3.3 cm LA Systolic Diameter MM 3.0 cm LA Ao Ratio MM 0.9 AV Cusp Separation MM 1.2 cm DOPPLER AV Peak Velocity 155.0 cm/s AV Peak Gradient 9.6 mmHg LVOT Peak Velocity 120.0 cm/s LVOT Peak Gradient 5.8 mmHg AV Area Cont Eq pk 2.0 cm Mitral E Point Velocity 91.6 cm/s Mitral A Point Velocity 113.0 cm/s Mitral E to A Ratio 0.8 LV E' Lateral Velocity 6.9 cm/s Mitral E to LV E' Lateral Ratio 13.2 LV E' Septal Velocity 6.7 cm/s Mitral E to LV E' Septal Ratio 13.6 TR Peak Velocity 153.0 cm/s TR Peak Gradient 9.4 mmHg Right Atrial Pressure 10.0 mmHg Pulmonary Artery Systolic Pressu 19.4 mmHg Right Ventricular Systolic Press 19.4 mmHg PV Peak Velocity 102.0 cm/s PV Peak Gradient 4.2 mmHg FINDINGS LEFT VENTRICLE Normal left ventricular size. Wall thickness is normal. The left ventricular systolic function is normal with an estimated ejection fraction in the range of 55-60%. RIGHT VENTRICLE Normal right ventricular size and systolic function. LEFT ATRIUM The left atrial size is normal. RIGHT ATRIUM The right atrial size is normal. ATRIAL SEPTUM Normal atrial septal thickness without atrial level shunting by limited color doppler interrogation. AORTA The aortic root and proximal ascending aorta are normal in size on limited imaging. MITRAL VALVE Trace mitral valve regurgitation. AORTIC VALVE Aortic valve sclerosis is present. TRICUSPID VALVE There is trace tricuspid valve regurgitation. PULMONARY VALVE No pulmonary valve regurgitation or stenosis. VESSELS The inferior vena cava is normal in size. PERICARDIUM No pericardial effusion. Karen Deejsus MD, FACC (Electronically Signed) Final Date:10 January 2018 12:19
[2018-01-10] MEDS ORDERED: Gabapentin 300 MG Capsule PO SCH (13:00)
--- NOTE | 2018-01-10 13:35 | P.HP ---
History of Present Illness Primary Care Physician: Emigdio Darling DO Chief Complaint: Weakness History of Present Illness: 77-year-old female with known history of hypertension, hyperlipidemia, breast cancer, chronic back pain, peripheral neuropathy who presented to the hospital for evaluation of profound weakness. Patient suffers from chronic back pain and is having outpatient management. Plans for possible morphine pump implantation which was scheduled to be done today. Apparently the patient was in her normal state of health and last seen normally on of last week. Patient indicates that she has not been eating that well and on Wednesday night she did have some macaroni and cheese for dinner, she admits to not really drinking anything. She had an episode of nausea and vomiting that evening, she went to bed on the couch she had when she got up in the middle the night to have another episode of vomiting, she thinks that she fell asleep on the toilet. She made her way back up to the couch and laid down today went back to sleep. And then 4:00 in the afternoon as same day friends came by and noticed that she was still sleeping and had profound weakness so they called the ambulance. The patient was brought to the hospital and found to have significant signs of acute renal failure, hypotension, signs of dehydration. No infectious source was identified. Upon seeing the patient today she appears to be much more alert. Blood pressure much improved after 2 L of normal saline bolus. Patient does continue to have back pain. Patient has developed urinary retention. As indicated by patient that she has not been eating or drinking well. But she states that she had been taking her medication. Did discuss with the daughter at bedside as well. Currently the patient laboratory studies , vital signs are stable. - Diagnosis (1) Acute renal failure superimposed on stage 3 chronic kidney disease (2) Hypotension (3) Dehydration Inpatient Certification: I certify that the inpatient services were ordered in accordance with Medicare regulations governing the order. This includes certification that hospital inpatient services are reasonable and necessary and in the case of services not specified as inpatient-only under 42 CFR 419.22(n), that they are appropriately provided as inpatient services in accordance to with the 2-midnight benchmark under 43 CFR 412.3(e) Estimated Total Length of Stay (Days): 2 Plans for Post Hospital Care: Not yet determined Review of Systems All other systems reviewed negative except as stated in HPI Musculoskeletal: Reports back pain, Reports muscle weakness PMFSH - History History Provided By: Patient - Medical History Medical History: Medical History (Last Updated 01/10/18 @ 11:42 by ADELINE Munson) Breast cancer Arthritis Back pain Cancer Hyperlipidemia Hypertension Neuropathy - Surgical History Surgical History: Surgical History (Last Reviewed 01/10/18 @ 08:06 by Lonnie Fitzpatrick) History of hip surgery Hx of appendectomy Previous back surgery Total knee replacement status - Family History Family History: Family History (Last Updated 01/10/18 @ 11:43 by ADELINE Munson) Father Family history of colon cancer Mother Family history of multiple myeloma - Tobacco History Second Hand Smoke Exposure: No Smoking Status: Never smoker - Alcohol History How Often Do You Have a Drink Containing Alcohol: Monthly or less - Substance Use History Substance History: No History of Abuse - Travel History Recent Travel in the [place] Within the Last 8 Weeks: No Recent Travel Out of the Country Within the Last 8 Weeks: No - Immunization History Tetanus Immunization: Unsure Hx Influenza Vaccine This Season: Yes Medications and Allergies Active Medications: Active Medications Acetaminophen (Tylenol) 650 mg PO Q4H PRN PRN Reason: Temp > 100.4 Al Hydroxide/Mg Hydroxide (Milk Of Magnesia Liq) 30 ml PO Q12H PRN PRN Reason: Mild Constipation Bisacodyl (Dulcolax Supp) 10 mg RECTAL DAILY PRN PRN Reason: SEVERE CONSITIPATION Chlorhexidine Gluconate (Chlorhexidine 2% Cloth) 3 pack TOPICAL DAILY@0400 [facility]O Stop: 01/15/18 03:59 Last Admin: 01/10/18 03:08 Dose: 3 pack Chlorhexidine Gluconate (Chlorhexidine 2% Cloth) 3 pack TOPICAL DAILY@0400 PRN PRN Reason: Extra cloth needed Stop: 01/15/18 03:59 Gabapentin (Neurontin) 600 mg PO TID [facility] Sodium Chloride (Ns Inj) 1,000 mls @ 100 mls/hr IV.CONT .Q10H [facility] Last Admin: 01/10/18 08:42 Dose: 100 mls/hr Lactulose (Lactulose Liq) 30 ml PO DAILY PRN PRN Reason: SEVERE CONSITIPATION Ondansetron HCl (Zofran Inj) 4 mg IV.PUSH Q6H PRN PRN Reason: NAUSEA OR VOMITING Oxycodone/Acetaminophen (Percocet 7.5/325 Mg) 1 tab PO Q6H PRN PRN Reason: PAIN SCALE 6 TO 10 Senna/Docusate Sodium (Rosenda-Colace) 1 tab PO BID [facility] Last Admin: 01/10/18 08:43 Dose: 1 tab Sennosides (Senokot) 17.2 mg PO Q12H PRN PRN Reason: Moderate Constipation Sodium Chloride (Ns Flush) 2 ml IV.FLUSH PRN PRN PRN Reason: FLUSH AFTER USING IV ACCESS Last Admin: 01/10/18 08:43 Dose: 2 ml Allergies Allergy/AdvReac Type Severity Reaction Status Date / Time No Known Allergies Allergy Verified 12/05/17 13:44 Home Medications Medication Instructions Recorded Confirmed Type Arava 10 mg PO DAILY 12/05/17 01/09/18 History alendronate [Fosamax] 70 mg PO QWEEK 12/05/17 01/09/18 History amlodipine 2.5 mg PO DAILY 12/05/17 01/09/18 History anastrozole 1 mg PO DAILY 12/05/17 01/09/18 History atorvastatin [Lipitor] 20 mg PO DAILY 12/05/17 01/09/18 History calcium carbonate-vitamin D3 1 tab PO DAILY 12/05/17 01/09/18 History [Calcium 600 + D(3)] ergocalciferol (vitamin D2) 2,000 unit PO QWEEK 12/05/17 01/09/18 History [Vitamin D2] gabapentin 600 mg PO TID 12/05/17 01/09/18 History hydrochlorothiazide 25 mg PO DAILY 12/05/17 01/09/18 History loratadine-pseudoephedrine 1 tab PO DAILY 12/05/17 01/09/18 History [Claritin-D 24 Hour] meloxicam 15 mg PO DAILY 12/05/17 01/09/18 History olmesartan [Benicar] 40 mg PO DAILY 12/05/17 01/09/18 History oxycodone-acetaminophen 1 tab PO Q4-6H PRN 12/05/17 01/09/18 History zolpidem [Ambien] 10 mg PO HS 12/05/17 01/09/18 History Exam Vital signs: Vital Signs 01/09/18 18:23 01/09/18 18:37 01/09/18 19:30 Temperature 98.3 F Pulse Rate 103 H 96 H Respiratory Rate 15 16 Blood Pressure 77/36 L 87/50 L Pulse Oximetry 88 L 93 L 92 L 01/09/18 20:00 01/09/18 20:03 01/09/18 21:00 Temperature Pulse Rate 91 H 96 H Respiratory Rate 16 16 Blood Pressure 95/46 L 93/51 L Pulse Oximetry 97 93 L 92 L 01/09/18 22:00 01/09/18 22:29 01/09/18 22:49 Temperature 98.2 F Pulse Rate 94 H 94 H 94 H Respiratory Rate 16 16 17 Blood Pressure 84/44 L 100/54 L 94/59 L Pulse Oximetry 99 99 97 01/09/18 22:50 01/09/18 22:51 01/10/18 00:01 Temperature Pulse Rate 96 H 92 H 96 H Respiratory Rate 13 5 L 14 Blood Pressure 92/57 L 79/47 L Pulse Oximetry 96 97 97 01/10/18 00:18 01/10/18 00:28 01/10/18 00:30 Temperature Pulse Rate 92 H 94 H Respiratory Rate 16 15 Blood Pressure 71/44 L 83/44 L Pulse Oximetry 96 96 96 01/10/18 00:45 01/10/18 00:49 01/10/18 01:00 Temperature Pulse Rate 94 H 92 H 92 H Respiratory Rate 15 12 Blood Pressure 79/46 L 99/64 L Pulse Oximetry 97 97 01/10/18 01:15 01/10/18 01:30 01/10/18 01:45 Temperature Pulse Rate 90 94 H 92 H Respiratory Rate 12 14 16 Blood Pressure 118/53 L 108/56 L 103/62 Pulse Oximetry 97 95 98 01/10/18 02:00 01/10/18 02:15 01/10/18 02:30 Temperature 97.9 F Pulse Rate 92 H 96 H 96 H Respiratory Rate 17 13 13 Blood Pressure 93/53 L 96/55 L 91/54 L Pulse Oximetry 97 94 L 95 01/10/18 02:45 01/10/18 03:00 01/10/18 03:15 Temperature Pulse Rate 94 H 90 90 Respiratory Rate 14 12 12 Blood Pressure 81/56 L 101/59 L 112/60 Pulse Oximetry 96 97 94 L 01/10/18 03:30 01/10/18 03:45 01/10/18 04:00 Temperature Pulse Rate 88 90 90 Respiratory Rate 25 H 27 H 13 Blood Pressure 82/52 L 101/54 L 111/56 L Pulse Oximetry 96 96 97 01/10/18 04:15 01/10/18 08:00 01/10/18 08:15 Temperature Pulse Rate 90 104 H 100 H Respiratory Rate 12 29 H 17 Blood Pressure 104/60 111/78 118/56 L Pulse Oximetry 97 97 98 01/10/18 08:30 01/10/18 08:45 01/10/18 09:00 Temperature Pulse Rate 102 H 104 H 100 H Respiratory Rate 22 13 22 Blood Pressure 94/59 L 110/58 L Pulse Oximetry 97 95 98 01/10/18 10:00 01/10/18 11:00 01/10/18 12:00 Temperature 98.6 F Pulse Rate 100 H 104 H 102 H Respiratory Rate 18 17 19 Blood Pressure 122/62 125/57 L 140/68 Pulse Oximetry 96 95 96 Intake & Output 01/09/18 01/10/18 01/10/18 18:59 06:59 18:59 Intake Total 3000 / 3000 1000 / 1000 Output Total 900 / 900 750 / 750 Balance 2100 / 2100 250 / 250 Weight 58.967 kg 62 kg Intake: IV 3000 / 3000 1000 / 1000 NS Inj 1,000 ML @ 100 mls/hr IV 1000 / 1000 .CONT .Q10H [facility] Rx#:[id number] NS Inj 1,000 ML @ Wide Open IV. 3000 / 3000 SIG BOLUS ONE Rx#:[id number] Output: Urine Amount (Catheter) 900 / 900 750 / 750 Indwelling Urethral Catheter 750 / 750 Straight 900 / 900 Other: Date of Last Bowel Movement 01/10/18 01/09/18 Weight On Admission 60.5 kg Narrative: GENERAL: Well-developed, well-nourished, in no acute distress. alert and orientated HEENT: Head is normocephalic without any lesions or masses noted. Facial features are symmetric. Eyes: Pupils equal round reactive to light. Extraocular muscles are intact. Conjunctivae were clear. Oropharyngeal: Pharynx without any erythema edema. Tongue is midline without deviation. Buccal mucosa is moist without any masses or lesions NECK: Supple without any masses. Trachea midline no deviation. No JVD, no bruits are appreciated CARDIAC: Regular rhythm, regular rate. S1/S2 are heard. No murmurs gallops or rubs. LUNGS: Clear to auscultation bilaterally. No wheeze, rhonchi or rales. No use of accessory muscles on inspiration or expiration. ABDOMEN: Soft, nontender. Nondistended. Bowel sounds heard in all 4 quadrants. No organomegaly or masses. Negative rebound, negative guarding EXTREMITIES: No edema, pulses are equal bilaterally. No cyanosis or clubbing NEUROLOGY: Mood and affect appear appropriate. Cranial nerves II through XII grossly intact. Muscle strength 5/5 in upper and lower extremities bilaterally. Deep tendon reflexes are 2+ in upper and lower extremities bilaterally. Results - Labs CBC & Chem 7: 01/10/18 04:20 01/10/18 04:20 Labs: Laboratory Results - last 24 hr 01/09/18 01/09/18 01/09/18 01:00 18:42 18:42 CBC w Diff Auto diff final WBC 10.6 RBC 3.94 L Hgb 11.9 Hct 37.0 MCV 93.8 MCH 30.2 MCHC 32.2 RDW 14.1 Plt Count 242 MPV 8.9 Neut % (Auto) 95.1 H Lymph % (Auto) 2.6 L [place] % (Auto) 1.4 Eos % (Auto) 0.1 Baso % (Auto) 0.8 Neut # (Auto) 10.1 H Lymph # (Auto) 0.3 L [place] # (Auto) 0.1 Eos # (Auto) 0.0 Baso # (Auto) 0.1 WBC Differential . Differential Comment . Sodium 130 L Potassium 5.3 H Chloride 97 L Carbon Dioxide 23.3 Anion Gap 10 BUN 33 H Creatinine 2.50 H Estimated GFR 19 L Random Glucose 107 H Lactic Acid Calcium 8.2 L Prot Corrected Calcium Magnesium 1.9 Total Bilirubin 0.5 AST 34 ALT 28 Alkaline Phosphatase 45 Troponin I Less than 0.02 L Total Protein 5.9 L Albumin 2.9 L Urine Color Urine Clarity Urine pH Ur Specific [place] Urine Protein Urine Glucose (UA) Urine Ketones Urine Occult Blood Urine Nitrate Urine Bilirubin Urine Urobilinogen Ur Leukocyte Esterase Urine RBC Urine WBC Ur Squamous Epith Cells Micro UA Comment Ur Microscopic Review Urine Culture Comments Nasal Screen MRSA (PCR) Not detected 01/09/18 01/09/18 01/10/18 19:20 19:40 01:00 CBC w Diff WBC RBC Hgb Hct MCV MCH MCHC RDW Plt Count MPV Neut % (Auto) Lymph % (Auto) [place] % (Auto) Eos % (Auto) Baso % (Auto) Neut # (Auto) Lymph # (Auto) [place] # (Auto) Eos # (Auto) Baso # (Auto) WBC Differential Differential Comment Sodium Potassium Chloride Carbon Dioxide Anion Gap BUN Creatinine Estimated GFR Random Glucose Lactic Acid 1.5 Calcium Prot Corrected Calcium Magnesium Total Bilirubin AST ALT Alkaline Phosphatase Troponin I Less than 0.02 L Total Protein Albumin Urine Color Yellow Urine Clarity Clear Urine pH 5.5 Ur Specific [place] 1.010 Urine Protein Trace Urine Glucose (UA) Negative Urine Ketones Negative Urine Occult Blood Negative Urine Nitrate Negative Urine Bilirubin Negative Urine Urobilinogen 0.2 Ur Leukocyte Esterase Trace H Urine RBC 0-3 Urine WBC 0-5 Ur Squamous Epith Cells 0-5 Micro UA Comment Culture not ind Ur Microscopic Review Microscopic reviewed Urine Culture Comments Culture not ind Nasal Screen MRSA (PCR) 01/10/18 01/10/18 01/10/18 04:20 04:20 04:20 CBC w Diff Auto diff final WBC 6.2 RBC 3.08 L Hgb 9.3 L D Hct 28.9 L MCV 93.7 MCH 30.4 MCHC 32.4 RDW 13.9 Plt Count 189 MPV 9.1 Neut % (Auto) 82.9 H Lymph % (Auto) 9.7 [place] % (Auto) 5.9 Eos % (Auto) 0.9 Baso % (Auto) 0.6 Neut # (Auto) 5.1 Lymph # (Auto) 0.6 L [place] # (Auto) 0.4 Eos # (Auto) 0.1 Baso # (Auto) 0.0 WBC Differential . Differential Comment . Sodium 136 Potassium 4.3 D Chloride 107 D Carbon Dioxide 20.2 L Anion Gap 9 BUN 28 H Creatinine 1.50 H Estimated GFR 34 L Random Glucose 80 Lactic Acid Calcium 7.2 L* D Prot Corrected Calcium 8.5 Magnesium Total Bilirubin 0.5 AST 25 ALT 19 Alkaline Phosphatase 36 L Troponin I Less than 0.02 L Total Protein 4.8 L D Albumin 2.3 L D Urine Color Urine Clarity Urine pH Ur Specific [place] Urine Protein Urine Glucose (UA) Urine Ketones Urine Occult Blood Urine Nitrate Urine Bilirubin Urine Urobilinogen Ur Leukocyte Esterase Urine RBC Urine WBC Ur Squamous Epith Cells Micro UA Comment Ur Microscopic Review Urine Culture Comments Nasal Screen MRSA (PCR) - Imaging Impressions Chest X-Ray 01/09/18 21:17 CONCLUSION: Mild basilar density, probably atelectasis. No significant effusion. No pneumothorax. Head CT 01/09/18 21:17 CONCLUSION: 1. No acute intracranial abnormalities. . Caprini VTE Risk Assessment Caprini VTE Risk Assessment: Moderate/High Risk (score >= 2) Caprini Risk Assessment Model: Point Value = 1 Point Value = 2 Point Value = 3 Point Value = 5 Age 41-60 Minor surgery BMI > 25 kg/m2 Swollen legs Varicose veins or History of unexplained or recurrent spontaneous Oral contraceptives or hormone replacement Sepsis (< 1 month) Serious lung disease, including pneumonia (< 1 month) Abnormal pulmonary function Acute myocardial infarction Congestive heart failure (< 1 month) History of inflammatory bowel disease Medical patient at bed rest Age 61-74 Arthroscopic surgery Major open surgery (> 45 min) Laparoscopic surgery (> 45 min) Malignancy Confined to bed (> 72 hours) Immobilizing plaster cast Central venous access Age >= 75 History of VTE Family history of VTE Factor V Leiden Prothrombin [id number] Lupus anticoagulant Anticardiolipin antibodies Elevated serum homocysteine Heparin-induced thrombocytopenia Other congenital or acquired thrombophilia Stroke (< 1 month) Elective arthroplasty Hip, pelvis, or leg fracture Acute spinal cord injury (< 1 month) Prophylaxis Regimen: Total Risk Factor Score Risk Level Prophylaxis Regimen 0-1 Low Early ambulation 2 Moderate Order ONE of the following: *Sequential Compression Device (SCD) *Heparin 5000 units SQ BID 3-4 Higher Order ONE of the following medications: *Heparin 5000 units SQ TID *Enoxaparin/Lovenox 40 mg SQ daily (WT < 150 kg, CrCl > 30 mL/min) *Enoxaparin/Lovenox 30 mg SQ daily (WT < 150 kg, CrCl > 10-29 mL/min) *Enoxaparin/Lovenox 30 mg SQ BID (WT < 150 kg, CrCl > 30 mL/min) AND/OR *Sequential Compression Device (SCD) 5 or more Highest Order ONE of the following medications: *Heparin 5000 units SQ TID (Preferred with Epidurals) *Enoxaparin/Lovenox 40 mg SQ daily (WT < 150 kg, CrCl > 30 mL/min) *Enoxaparin/Lovenox 30 mg SQ daily (WT < 150 kg, CrCl > 10-29 mL/min) *Enoxaparin/Lovenox 30 mg SQ BID (WT < 150 kg, CrCl > 30 mL/min) AND *Sequential Compression Device (SCD) Assessment and Plan - Assessment (1) Acute renal failure superimposed on stage 3 chronic kidney disease Code(s): N17.9 - Acute kidney failure, unspecified; N18.3 - Chronic kidney disease, stage 3 (moderate) Status: Acute (2) Hypotension Code(s): I95.9 - Hypotension, unspecified Status: Acute (3) Dehydration Code(s): E86.0 - Dehydration Status: Acute - Plan Hypotension, resolved -No source of sepsis or cardiac event have been identified. It would appear the patient has hypovolemic hypotension secondary to poor p.o. intake, nausea and vomiting -Patient was given 2 L normal saline bolus, continue IV fluids -Maintain map greater than 65 -CT the brain was unremarkable -Chest x-ray showed basilar airspace disease probably atelectasis -Urinalysis was clear -Lactic acid level is normal -Blood cultures are negative for 1 day Acute renal failure superimposed on chronic kidney disease stage III, resolved -Patient has developed urinary retention, unknown reason at this time could be from her chronic back pain, chronic pain medications -Lynn is in place at this time, will discontinue Lynn at this time -Continue IV fluids -Continue monitor renal function Electrolyte abnormalities, resolved -Patient presented with hyponatremia, hyperkalemia -Abnormalities have been corrected -Continue monitor and replete as needed Chronic back pain, profound weakness -Continue home medication for pain control -Patient with urinary retention, may need MRI to rule out acute neurological abnormality -Awaiting physical therapy evaluation Hypertension, hyperlipidemia -Continue to hold antihypertensive at this time due to patient presenting with hypotension -Patient can resume statin upon discharge DVT prevention -Sequential compression devices (2) Hypotension Qualifiers: Hypotension type: unspecified hypotension type Qualified Code(s): I95.9 - Hypotension, unspecified
--- NOTE | 2018-01-10 14:55 | P.DIET ---
Nutritional Evaluation Type of nutrition evaluation: initial Nutrition consult regarding: Diet Evaluation Nutrition screening: Weight Loss > 10 lbs Subjective Subjective Comments: Pt consumed 100% of breakfast yesterday (01/09) Objective - Diagnosis hypotention - Objective Body Mass Index: 21.4 % IBW: 101 (IBW = 135lb) Body Weight Used for Calculations: Actual Energy Needs - Lower Range (kCal/kg): 25 Energy Needs - Upper Range (kCal/kg): 30 Lower Limit kCal/kg (kCals): 1,550 Upper Limit kCal/kg (kCals): 1,860 Lower Limit Protein Factor (Grams per Kg): 1.1 Upper Limit Protein Factor (Grams per Kg): 1.3 Lower Protein Needs (Protein): 68 Upper Protein Needs (Protein): 74 Dietitian Reviewed in Medical Record: Current diet, Curent medications, Intake & Output, Labs, Medical history Objective Comments: PMH: arthritis, back pain, breast cancer, HLD, HTN, neuropthy Labs: BUN 28, Cr 1.5, GFR 34 Assessment Assessment: Pt at nutritional risk r/t reported unplanned wt loss. Pt ate 100% of her breakfast yesterday (01/09). RD to recommend Nepro BID for PO supplement. Monitor PO and supplement intake, renal labs, wt changes. Labs reviewed, dietitian following. Recommendations: 1. Continue cardiac diet 2. RD to recommend Nepro BID for PO supplement 3. Monitor PO and supplement intake, renal labs, wt changes 4. Dietitian following Dietitian to Monitor: Lab values, Renal labs, Diet tolerance, Weight change, PO Intake, Medical course
[2018-01-10] MEDS: Gabapentin 300 MG Capsule PO SCH (21:16)
[2018-01-11] MEDS: Chlorhexidine Gluconate 2% 1 Pack (2 Cloths) TOPICAL SCH (03:03)
[2018-01-11] MEDS: Sod Chloride 0.9% Inj 1,000 ML IV.CONT SCH ×2 (03:03→14:25)
[2018-01-11] MEDS: Senna/Docusate Sodium 8.6/50 MG Tablet PO SCH ×2 (08:33→20:31)
[2018-01-11] MEDS: Gabapentin 300 MG Capsule PO SCH ×2 (08:34→20:33)
--- NOTE | 2018-01-11 10:04 | P.PNIM ---
Subjective Interval history: Patient says she feels well this morning. She says that she suffers from chronic lower back pain, otherwise no other complaints. Physical Exam Vital signs: Vital Signs 01/10/18 10:00 01/10/18 11:00 01/10/18 12:00 Temperature 98.6 F Pulse Rate 100 H 104 H 102 H Respiratory Rate 18 17 19 Blood Pressure 122/62 125/57 L 140/68 Pulse Oximetry 96 95 96 01/10/18 13:06 01/10/18 13:07 01/10/18 14:00 Temperature Pulse Rate 102 H 102 H 112 H Respiratory Rate 23 29 H 29 H Blood Pressure 135/66 146/71 H Pulse Oximetry 96 96 01/10/18 15:00 01/10/18 15:28 01/10/18 16:00 Temperature Pulse Rate 100 H 100 H Respiratory Rate 21 16 21 Blood Pressure 129/67 125/65 Pulse Oximetry 95 94 L 01/10/18 19:00 01/10/18 20:00 01/10/18 21:00 Temperature 98.7 F Pulse Rate 106 H 108 H 94 H Respiratory Rate 29 H 25 H 23 Blood Pressure 152/85 H 159/90 H 137/69 Pulse Oximetry 96 96 01/10/18 21:18 01/10/18 22:00 01/10/18 23:00 Temperature Pulse Rate 105 H 94 H 90 Respiratory Rate 20 13 Blood Pressure 150/70 H 127/66 Pulse Oximetry 01/11/18 00:00 01/11/18 01:00 01/11/18 02:25 Temperature 98 F Pulse Rate 88 86 88 Respiratory Rate 14 13 22 Blood Pressure 138/61 127/69 162/83 H Pulse Oximetry 01/11/18 03:00 01/11/18 03:37 01/11/18 04:00 Temperature 98.4 F Pulse Rate 98 H 90 90 Respiratory Rate 17 16 17 Blood Pressure 166/80 H 148/70 H 152/78 H Pulse Oximetry 01/11/18 05:00 01/11/18 06:00 Temperature Pulse Rate 84 80 Respiratory Rate 12 12 Blood Pressure 139/66 124/75 Pulse Oximetry Intake & Output 01/10/18 01/11/18 01/11/18 18:59 06:59 18:59 Intake Total 2240 / 2240 1140 / 1140 240 / 240 Output Total 1800 / 1800 2900 / 2900 Balance 440 / 440 -1760 / -1760 240 / 240 Weight 62.6 kg Intake: IV 1999 1000 / 1000 NS Inj 1,000 ML @ 100 mls/hr IV 1999 1000 / 1000 .CONT .Q10H MARIANO Rx#:[id number] Oral 240 / 240 140 / 140 240 / 240 Output: Urine 2900 / 2900 Urine Amount (Catheter) 1800 / 1800 Indwelling Urethral Catheter 1800 / 1800 Other: # Voids 8 Date of Last Bowel Movement 01/09/18 01/10/18 # Bowel Movements 2 Narrative: General patient in no acute distress HEENT extraocular movements are intact, clear oropharyngeal mucosa, no JVD Cardiovascular S1-S2 audible, RRR, no murmurs rubs or gallops Respiratory clear to auscultation bilaterally Abdomen soft, nontender, nondistended, normal bowel sounds Extremities no edema 2+ distal pulses in bilateral upper and lower extremities Neuro patient moves all 4 extremities, sensation is intact bilaterally. No obvious neurological deficits. - Urinary Catheter Management Straight Cath placed during this visit: yes Reason for continuing: Acute urinary retention Insertion date: 01/10/18 Insertion time: 05:16 Indwelling Urethral Catheter Cath placed during this visit: no Results - Labs CBC & Chem 7: 01/10/18 04:20 01/10/18 04:20 Microbiology 01/09/18 19:40 Blood - Peripheral Aerobic Blood Culture - Preliminary No growth in 1 day 01/09/18 19:40 Blood - Peripheral Anaerobic Blood Culture - Final QNS - See aerobic report. 01/09/18 19:35 Blood - Peripheral Aerobic Blood Culture - Preliminary No growth in 1 day 01/09/18 19:35 Blood - Peripheral Anaerobic Blood Culture - Preliminary No growth in 1 day Assessment and Plan - Assessment (1) Acute renal failure superimposed on stage 3 chronic kidney disease Code(s): N17.9 - Acute kidney failure, unspecified; N18.3 - Chronic kidney disease, stage 3 (moderate) Status: Acute (2) Hypotension Code(s): I95.9 - Hypotension, unspecified Status: Acute (3) Dehydration Code(s): E86.0 - Dehydration Status: Acute - Plan This patient is a 77-year-old female with a diagnosis of hypertension, dyslipidemia, breast cancer, chronic back pain, peripheral neuropathy. The patient presented to our facility with complaints of profound weakness. The patient had nausea, vomiting, and poor p.o. intake for a couple of days prior to admission. She was found in her bed at home sleeping around 4 PM by her neighbors and appeared to be weak. She was then brought into the emergency department for evaluation. 1. Acute kidney injury on chronic kidney disease stage III, improving The patient presented dehydrated, her serum creatinine was elevated at 2.5 labs showed a significant downtrend and was 1.5 as of yesterday. We will continue IV fluids for today and follow-up in a.m. renal panel. Avoid nephrotoxic agents. Encourage p.o. intake. Lynn catheter was removed yesterday, patient has good urine output. 2. Hypotension, resolved Patient was hypotensive on arrival. She was started on aggressive IV fluid hydration and her blood pressure has now normalized. 3. Hypertension The patient's systolic blood pressure has been running in the 150s. Amlodipine will be started to her medication regimen today. We will continue to monitor her blood pressure and adjust her medications as needed. 4. Dyslipidemia Patient will be started on a statin which is what she takes at home. SCDs for DVT prophylaxis. Patient will be transferred out of the intensive care unit. (2) Hypotension Qualifiers: Hypotension type: unspecified hypotension type Qualified Code(s): I95.9 - Hypotension, unspecified
[2018-01-11] MEDS: amLODIPine 5 MG Tablet PO SCH (11:30)
[2018-01-11] MEDS ORDERED: Influenza (Quadrivalent) Vaccine 0.5 ML Syringe IM ONE (13:00)
[2018-01-12] MEDS: Sod Chloride 0.9% Inj 1,000 ML IV.CONT SCH ×2 (00:14→12:14)
[2018-01-12 05:03] LABS: Baso % (Auto) 0.8 % (0.0-2.0); Eos # (Auto) 0.1 th/mm3 (0.0-0.4); Eos % (Auto) 3.8 % (0.0-4.0); Hemoglobin 9.7 gm/dL (11.6-15.3); Lymph # (Auto) 1.4 th/mm3 (1.0-4.8); Lymph % (Auto) 40.1 % (9.0-44.0); Mean Corpuscular HGB Conc 32.4 % (32.0-36.0); Mean Corpuscular Hemoglobin 30.3 pg (27.0-34.0); Mean Corpuscular Volume 93.4 fL (80.0-100.0); Mean Platelet Volume 7.8 fL (7.0-11.0); Mono # (Auto) 0.3 th/mm3 (0.0-0.9); Mono % (Auto) 9.9 % (0.0-8.0); Neut # (Auto) 1.7 th/mm3 (1.8-7.7); Neut % (Auto) 45.4 % (16.0-70.0); Platelet Count 186 th/mm3 (150-450); Red Blood Count 3.21 mil/mm3 (4.00-5.30); Red Cell Distribution Width 14.1 % (11.6-17.2); White Blood Count 3.5 th/mm3 (4.0-11.0)
[2018-01-12 05:11] LABS: Potassium 3.8 meq/L (3.5-5.1)
[2018-01-12 05:20] LABS: Calcium 8.1 mg/dL (8.5-10.1); Carbon Dioxide 23.4 meq/L (21.0-32.0); Magnesium 1.6 mg/dL (1.5-2.5)
[2018-01-12] MEDS: Chlorhexidine Gluconate 2% 1 Pack (2 Cloths) TOPICAL SCH (05:30)
[2018-01-12] MEDS: Gabapentin 300 MG Capsule PO SCH ×2 (07:31→08:22)
[2018-01-12] MEDS: Senna/Docusate Sodium 8.6/50 MG Tablet PO SCH ×2 (07:31→08:22)
[2018-01-12] MEDS: amLODIPine 5 MG Tablet PO SCH ×2 (07:31→08:22)
[2018-01-12] MEDS ORDERED: amLODIPine 5 MG Tablet PO SCH (10:01)
[2018-01-12] MEDS ORDERED: Magnesium Sulfate Inj 2 GM in Sodium Chlor 0.9% Inj 96 ML IV.SIG ONE (10:02)
--- NOTE | 2018-01-12 10:10 | P.DCO ---
- Physical Therapy Order: Evaluate and treat - Home Health Nursing Order: Medical education, Nursing assessment with vital signs - Case Management Consult Case Management Consult-Home Health: Yes - Certification I have seen patient Nadira Charles on 01/12/18. My clinical findings support the need for the requested home health care services because: Deconditioned with increased weakness I certify that my clinical findings support that this patient is homebound because: Unsafe to leave home unassisted
--- NOTE | 2018-01-12 10:19 | P.DS ---
Date of admission: 01/09/18 21:35 Primary care physician: Emigdio Darling DO Brief History from admission: 77-year-old female with known history of hypertension, hyperlipidemia, breast cancer, chronic back pain, peripheral neuropathy who presented to the hospital for evaluation of profound weakness. Patient suffers from chronic back pain and is having outpatient management. Plans for possible morphine pump implantation which was scheduled to be done on the day of admission. The patient presented and was found to be dehydrated, she was in acute kidney injury and hypotensive. She was then admitted to the intensive care unit. DS: Diagnosis - Discharge Diagnosis (1) Acute renal failure superimposed on stage 3 chronic kidney disease Status: Acute (2) Hypotension Status: Acute (3) Dehydration Status: Acute DS: Medications - Discharge Medications Prescriptions: amlodipine [Norvasc] 5 mg PO DAILY #30 tab DS: Summary Hospital Course: This patient is a 77-year-old female with a diagnosis of hypertension, dyslipidemia, breast cancer, chronic back pain, peripheral neuropathy. The patient presented to our facility with complaints of profound weakness. The patient had nausea, vomiting, and poor p.o. intake for a couple of days prior to admission. She was found in her bed at home sleeping around 4 PM by her neighbors and appeared to be weak. She was then brought into the emergency department for evaluation. 1. Acute kidney injury on chronic kidney disease stage III, improving 2. Alcohol use The patient presented dehydrated, her serum creatinine was elevated at 2.5. The patient was taking hydrochlorothiazide and an ARB at home which also likely contributed to her acute kidney injury. She was hypotensive and her blood pressure medications were held. She was started on IV fluids and her serum creatinine has showed a downtrend and now normalized. Patient says she drinks 1 glass of wine daily, the patient was advised to cut back on her daily alcohol drinking. Hydrochlorthiazide will be stopped at discharge. The patient's amlodipine dose was increased to 5 mg p.o. daily. Her serum creatinine has now normalized and she can be restarted on her ARB. Patient will be discharged home today with home health. The patient has a cane and a 4 wheel walker at home which she can use when ambulating at home. 2. Hypotension secondary to dehydration, resolved Patient was hypotensive on arrival. She was started on aggressive IV fluid hydration and her blood pressure has now normalized. 3. Hypertension The patient's systolic blood pressure has been running in the 150s. Amlodipine dose was increased at discharge. The patient was advised to check her blood pressures at home and presented to her primary care doctor in the next 1 week. Her blood pressure medications can be adjusted as needed. 4. Dyslipidemia Patient will be started on a statin which is what she takes at home. - Time Spent with Patient Total time spent providing and/or coordinating discharge services: Greater than 30 minutes - Quality: VTE Deep Vein Thrombosis/Pulmonary Embolism Present on Admission: No Exam Vital signs: Vital Signs 01/11/18 11:00 01/11/18 11:02 01/11/18 12:00 Temperature 97.9 F Pulse Rate 82 84 Respiratory Rate 12 12 14 Blood Pressure 144/74 H 156/80 H Pulse Oximetry 95 98 01/11/18 16:49 01/11/18 20:00 01/11/18 21:00 Temperature 98.3 F 99.5 F Pulse Rate 86 86 89 Respiratory Rate 34 H 14 Blood Pressure 149/81 H 162/75 H Pulse Oximetry 97 01/12/18 00:00 01/12/18 00:17 01/12/18 04:00 Temperature 98 F 98.4 F 98.2 F Pulse Rate 88 86 84 Respiratory Rate 14 17 13 Blood Pressure 148/78 H 149/78 H 150/87 H Pulse Oximetry 01/12/18 08:00 Temperature 98.2 F Pulse Rate Respiratory Rate Blood Pressure Pulse Oximetry Intake & Output 01/11/18 01/12/18 01/12/18 18:59 06:59 18:59 Intake Total 1240 / 1240 1120 / 1120 Output Total 1125 / 1125 1850 / 1850 Balance 115 / 115 -730 / -730 Weight 61.6 kg Intake: IV 1000 / 1000 1000 / 1000 NS Inj 1,000 ML @ 100 mls/hr IV 1000 / 1000 1000 / 1000 .CONT .Q10H MARIANO Rx#:[id number] Oral 240 / 240 120 / 120 Output: Urine 1125 / 1125 1850 / 1850 Other: # Voids 3 Date of Last Bowel Movement 01/10/18 # Bowel Movements 0 0 Narrative: General patient in no acute distress HEENT extraocular movements are intact, clear oropharyngeal mucosa, no JVD Cardiovascular S1-S2 audible, RRR, no murmurs rubs or gallops Respiratory clear to auscultation bilaterally Abdomen soft, nontender, nondistended, normal bowel sounds Extremities no edema 2+ distal pulses in bilateral upper and lower extremities Neuro cranial nerves II through XII intact Results Procedures completed during hospitalization: None Labs on day of discharge: Labs from last 24 hours 01/12/18 01/12/18 04:30 04:30 CBC w Diff Auto diff final WBC 3.5 L RBC 3.21 L Hgb 9.7 L Hct 30.0 L MCV 93.4 MCH 30.3 MCHC 32.4 RDW 14.1 Plt Count 186 MPV 7.8 Neut % (Auto) 45.4 Lymph % (Auto) 40.1 [place] % (Auto) 9.9 H Eos % (Auto) 3.8 Baso % (Auto) 0.8 Neut # (Auto) 1.7 L Lymph # (Auto) 1.4 [place] # (Auto) 0.3 Eos # (Auto) 0.1 Baso # (Auto) 0.0 WBC Differential . Differential Comment . Sodium 138 Potassium 3.8 Chloride 107 Carbon Dioxide 23.4 Anion Gap 8 BUN 8 Creatinine 0.85 Estimated GFR 65 L Random Glucose 95 Calcium 8.1 L Magnesium 1.6 Preliminary micro results at discharge 01/09/18 19:40 Aerobic Blood Culture - Preliminary Blood - Peripheral No growth in 2 days 01/09/18 19:35 Aerobic Blood Culture - Preliminary Blood - Peripheral No growth in 2 days Anaerobic Blood Culture - Preliminary No growth in 2 days - Impressions ITS Impressions Chest X-Ray 01/09/18 21:17 CONCLUSION: Mild basilar density, probably atelectasis. No significant effusion. No pneumothorax. Head CT 01/09/18 21:17 CONCLUSION: 1. No acute intracranial abnormalities. . Discharge Plan - Discharge Disposition Patient Disposition: W/Home Health Service - Discharge Condition Condition: Stable - Discharge Order Discharge Orders: Discharge Order (Routine); Ordered 01/12/18 Ordered By: Joe Banegas - Physicians Team Primary Care Provider: Emigdio Darling Attending Provider: Joe Banegas
[2018-01-12 12:17] VITALS: BP 161/88; RESP 23
[2018-01-12 12:30] VITALS: PULSE 96; TEMP 98.6; O2SAT 96
== END 2018-01-12 14:15 | disposition home health service (06) ==
LOC: PHED 17:33 → PHEDA 21:35 → PHICU 22:35
PROVIDERS: ADMIT Hospitalist; ATTEND Hospitalist

== ENCOUNTER 2018-01-17 16:47 | Inpatient (IN) ==
[2018-01-17] MEDS ORDERED: Sod Chloride 0.9% Inj 1,000 ML IV.SIG ONE (17:07)
--- NOTE | 2018-01-17 17:18 | ED ---
HPI General Chief Complaint: Syncope Stated Complaint: syncope/low bp/back pain Time Seen by Provider: 01/17/18 17:06 Source: patient Mode of arrival: ambulatory Limitations: no limitations History of Present Illness HPI narrative: 77 years old female was brought by private vehicle to the emergency room after a syncopal episode. Patient was with her friend going to see her physician today in the office. Patient was seen by [employer] to Dr. Darling. Patient was diagnosed with UTI. Patient was given prescription of Bactrim and Zofran. Patient had a syncopal episode in the office. Patient was advised to be brought to the emergency room by her friend by private vehicle to be evaluated. Patient denies any headache. Patient denies any visual change. Patient denies any chest pain or shortness of breath. Patient denies abdominal pain. Patient denies any focal weakness or numbness of extremity. Patient states that she has urinary frequency for the past 2 days. Patient denies any back pain. Patient was admitted to [facility] on January 09 and discharged on January 12 for acute kidney injury, hypotension, dehydration. Patient was on HCTZ and ARB at home prior to admission. Patient was admitted and given IV fluid with improvement of her symptoms. Patient was discharged home with advised to stop HCTZ and increase amlodipine to 5 mg daily from 2.5 mg daily. Patient was advised to continue with her ARB. Patient states that she has been doing fine since discharge. Patient started having urinary frequency since yesterday. Patient otherwise eating well at home. Patient states that she did not injure herself during the syncopal episode today. complaint: Reports loss of consciousness Onset (ago): minute(s) -: second(s) Prodromal symptoms: Reports none Witnessed: yes - by bystander Context: Reports at rest Injuries sustained associated with event: Reports none Current symptoms: Reports none History: Reports previous syncopal episode Treatments prior to arrival: Reports none Related Data Home Medications Medication Instructions Recorded Confirmed Arava 10 mg PO DAILY 12/05/17 01/17/18 alendronate [Fosamax] 70 mg PO QWEEK 12/05/17 01/17/18 anastrozole 1 mg PO DAILY 12/05/17 01/17/18 atorvastatin [Lipitor] 20 mg PO DAILY 12/05/17 01/17/18 calcium carbonate-vitamin D3 1 tab PO DAILY 12/05/17 01/17/18 [Calcium 600 + D(3)] ergocalciferol (vitamin D2) 2,000 unit PO QWEEK 12/05/17 01/17/18 [Vitamin D2] gabapentin 600 mg PO TID 12/05/17 01/17/18 loratadine-pseudoephedrine 1 tab PO DAILY 12/05/17 01/17/18 [Claritin-D 24 Hour] meloxicam 15 mg PO DAILY 12/05/17 01/17/18 olmesartan [Benicar] 40 mg PO DAILY 12/05/17 01/17/18 oxycodone-acetaminophen 1 tab PO Q4-6H PRN 12/05/17 01/17/18 zolpidem [Ambien] 10 mg PO HS 12/05/17 01/17/18 Previous Rx's Medication Instructions Recorded amlodipine [Norvasc] 5 mg PO DAILY #30 tab 01/12/18 Allergies Allergy/AdvReac Type Severity Reaction Status Date / Time No Known Allergies Allergy Verified 01/17/18 17:06 Review of Systems ROS: all other systems reviewed are negative PMFSH History History Provided By: Patient and Friend Medical History Medical History Arthritis (Acute) Back pain (Acute) Breast cancer (Acute) Cancer (Acute) Hyperlipidemia (Acute) Hypertension (Acute) Neuropathy (Acute) Surgical History Surgical History History of hip surgery (Acute) Hx of appendectomy (Acute) Previous back surgery (Acute) Total knee replacement status (Acute) Family History Family History Father Family history of colon cancer Mother Family history of multiple myeloma Social History Social History Substance History: No History of Abuse Second Hand Smoke Exposure: No Smoking Status: Never smoker How Often Do You Have a Drink Containing Alcohol: Never Recent Travel in [facility] within the Last 8 Weeks: No Recent Out of Country Travel within the Last 8 Weeks: No Exam Narrative Exam Narrative: GENERAL: Well-nourished, well-developed patient. SKIN: Focused skin assessment warm/dry. HEAD: Normocephalic. EYES: No scleral icterus. No injection or drainage. NECK: Supple, trachea midline. No JVD or lymphadenopathy. CARDIOVASCULAR: Regular rate and rhythm without murmurs, gallops, or rubs. RESPIRATORY: Breath sounds equal bilaterally. No accessory muscle use. GASTROINTESTINAL: Abdomen soft, non-tender, nondistended. MUSCULOSKELETAL: No cyanosis, or edema. BACK: Nontender without obvious deformity. No CVA tenderness. Neurologic exam: Patient is with mild lethargy however answers questions appropriately. Patient moves all extremity well. No obvious focal neurological deficit. Course Initial Documented Vital Signs Temperature 97.7 F 01/17/18 16:50 Pulse Rate 87 01/17/18 16:50 Respiratory Rate 16 01/17/18 16:50 Blood Pressure 77/38 L 01/17/18 16:50 Pulse Oximetry 93 L 01/17/18 16:50 Last Documented Vital Signs Temperature 97.7 F 01/17/18 16:50 Pulse Rate 86 01/17/18 18:23 Respiratory Rate 18 01/17/18 18:23 Blood Pressure 98/49 L 01/17/18 18:23 Pulse Oximetry 95 01/17/18 17:39 Medical Decision Making MDM Narrative Medical decision making narrative: 77 years old female with syncope. Patient was admitted recently for syncope secondary to dehydration. History hypertension on blood pressure medications. Patient's blood pressure in the physician's office was 110s range. Upon arrival to the ED systolic blood pressure in the 70s. Patient was put on monitor. IV started. Patient was given 1 L normal saline solution. Repeated normal saline solution 1 L IV bolus. Normal saline solution 125 cc an hour. Cefepime 1 g IV. Vancomycin 1 g IV. Medical Screen Exam Complete: Yes Emergency Medical Condition: Yes Differential Diagnosis Differential Diagnosis: Differential diagnosis including vasovagal reaction, hypotension, electrolyte imbalance, dehydration, arrhythmia, TIA, CVA, UTI, sepsis. Lab Data Lab results reviewed: Yes I reviewed the patient's lab results. Result diagrams: 01/17/18 17:00 01/17/18 17:00 Lab Results 01/17/18 01/17/18 01/17/18 Range/Units 17:00 17:00 17:00 CBC w Diff Auto diff final WBC 14.7 H (4.0-11.0) th/mm3 RBC 3.69 L (4.00-5.30) mil/mm3 Hgb 11.4 L (11.6-15.3) gm/dL Hct 35.0 (35.0-46.0) % MCV 95.0 (80.0-100.0) fL MCH 31.0 (27.0-34.0) pg MCHC 32.6 (32.0-36.0) % RDW 14.5 (11.6-17.2) % Plt Count 321 D (150-450) th/mm3 MPV 7.6 (7.0-11.0) fL Neut % (Auto) 89.9 H (16.0-70.0) % Lymph % (Auto) 3.7 L (9.0-44.0) % Pepin % (Auto) 1.1 (0.0-8.0) % Eos % (Auto) 0.5 (0.0-4.0) % Baso % (Auto) 4.8 H (0.0-2.0) % Neut # (Auto) 13.2 H (1.8-7.7) th/mm3 Lymph # (Auto) 0.5 L (1.0-4.8) th/mm3 Pepin # (Auto) 0.2 (0.0-0.9) th/mm3 Eos # (Auto) 0.1 (0.0-0.4) th/mm3 Baso # (Auto) 0.7 H (0.0-0.2) th/mm3 WBC Differential . Differential Comment . PT 10.1 (9.8-11.6) sec INR 1.0 Ratio APTT 20.3 L (23.4-31.7) sec Sodium 136 (136-145) meq/L Potassium 3.7 (3.5-5.1) meq/L Chloride 103 (98-107) meq/L Carbon Dioxide 23.0 (21.0-32.0) meq/L Anion Gap 10 (5-15) meq/L BUN 15 (7-18) mg/dL Creatinine 1.40 H (0.50-1.00) mg/dL Estimated GFR 37 L (>89) mL/min POC Glucose (68-110) mg/dl Random Glucose 95 (74-106) mg/dL Lactic Acid (0.4-2.0) mmol/L Calcium 8.0 L (8.5-10.1) mg/dL Total Bilirubin 0.8 (0.2-1.0) mg/dL AST 21 (15-37) U/L ALT 15 (10-53) U/L Alkaline Phosphatase 48 (45-117) U/L Troponin I Less than 0.02 L (0.02-0.05) ng/mL B-Natriuretic Peptide (0-100) pg/mL Total Protein 6.1 L (6.4-8.2) g/dL Albumin 3.4 (3.4-5.0) g/dL Urine Color (Yellw/Straw) Urine Clarity (Clear) Urine pH (5.0-8.5) Ur Specific Lueders (1.002-1.035) Urine Protein (Neg-Trace) mg/dL Urine Glucose (UA) (Negative) mg/dL Urine Ketones (Negative) mg/dL Urine Occult Blood (Negative) Urine Nitrate (Negative) Urine Bilirubin (Negative) Urine Urobilinogen (Less than 2) mg/dL Ur Leukocyte Esterase (Negative) Urine RBC (0-3) /hpf Urine WBC (0-5) /hpf Urine WBC Clumps (None) Urine Bacteria (None) /hpf Micro UA Comment Ur Microscopic Review Urine Culture Comments 01/17/18 01/17/18 01/17/18 Range/Units 17:00 17:07 17:25 CBC w Diff WBC (4.0-11.0) th/mm3 RBC (4.00-5.30) mil/mm3 Hgb (11.6-15.3) gm/dL Hct (35.0-46.0) % MCV (80.0-100.0) fL MCH (27.0-34.0) pg MCHC (32.0-36.0) % RDW (11.6-17.2) % Plt Count (150-450) th/mm3 MPV (7.0-11.0) fL Neut % (Auto) (16.0-70.0) % Lymph % (Auto) (9.0-44.0) % Pepin % (Auto) (0.0-8.0) % Eos % (Auto) (0.0-4.0) % Baso % (Auto) (0.0-2.0) % Neut # (Auto) (1.8-7.7) th/mm3 Lymph # (Auto) (1.0-4.8) th/mm3 Pepin # (Auto) (0.0-0.9) th/mm3 Eos # (Auto) (0.0-0.4) th/mm3 Baso # (Auto) (0.0-0.2) th/mm3 WBC Differential Differential Comment PT (9.8-11.6) sec INR Ratio APTT (23.4-31.7) sec Sodium (136-145) meq/L Potassium (3.5-5.1) meq/L Chloride (98-107) meq/L Carbon Dioxide (21.0-32.0) meq/L Anion Gap (5-15) meq/L BUN (7-18) mg/dL Creatinine (0.50-1.00) mg/dL Estimated GFR (>89) mL/min POC Glucose 87 (68-110) mg/dl Random Glucose (74-106) mg/dL Lactic Acid 2.5 H (0.4-2.0) mmol/L Calcium (8.5-10.1) mg/dL Total Bilirubin (0.2-1.0) mg/dL AST (15-37) U/L ALT (10-53) U/L Alkaline Phosphatase (45-117) U/L Troponin I (0.02-0.05) ng/mL B-Natriuretic Peptide 26 (0-100) pg/mL Total Protein (6.4-8.2) g/dL Albumin (3.4-5.0) g/dL Urine Color (Yellw/Straw) Urine Clarity (Clear) Urine pH (5.0-8.5) Ur Specific Lueders (1.002-1.035) Urine Protein (Neg-Trace) mg/dL Urine Glucose (UA) (Negative) mg/dL Urine Ketones (Negative) mg/dL Urine Occult Blood (Negative) Urine Nitrate (Negative) Urine Bilirubin (Negative) Urine Urobilinogen (Less than 2) mg/dL Ur Leukocyte Esterase (Negative) Urine RBC (0-3) /hpf Urine WBC (0-5) /hpf Urine WBC Clumps (None) Urine Bacteria (None) /hpf Micro UA Comment Ur Microscopic Review Urine Culture Comments 01/17/18 Range/Units 18:43 CBC w Diff WBC (4.0-11.0) th/mm3 RBC (4.00-5.30) mil/mm3 Hgb (11.6-15.3) gm/dL Hct (35.0-46.0) % MCV (80.0-100.0) fL MCH (27.0-34.0) pg MCHC (32.0-36.0) % RDW (11.6-17.2) % Plt Count (150-450) th/mm3 MPV (7.0-11.0) fL Neut % (Auto) (16.0-70.0) % Lymph % (Auto) (9.0-44.0) % Pepin % (Auto) (0.0-8.0) % Eos % (Auto) (0.0-4.0) % Baso % (Auto) (0.0-2.0) % Neut # (Auto) (1.8-7.7) th/mm3 Lymph # (Auto) (1.0-4.8) th/mm3 Pepin # (Auto) (0.0-0.9) th/mm3 Eos # (Auto) (0.0-0.4) th/mm3 Baso # (Auto) (0.0-0.2) th/mm3 WBC Differential Differential Comment PT (9.8-11.6) sec INR Ratio APTT (23.4-31.7) sec Sodium (136-145) meq/L Potassium (3.5-5.1) meq/L Chloride (98-107) meq/L Carbon Dioxide (21.0-32.0) meq/L Anion Gap (5-15) meq/L BUN (7-18) mg/dL Creatinine (0.50-1.00) mg/dL Estimated GFR (>89) mL/min POC Glucose (68-110) mg/dl Random Glucose (74-106) mg/dL Lactic Acid (0.4-2.0) mmol/L Calcium (8.5-10.1) mg/dL Total Bilirubin (0.2-1.0) mg/dL AST (15-37) U/L ALT (10-53) U/L Alkaline Phosphatase (45-117) U/L Troponin I (0.02-0.05) ng/mL B-Natriuretic Peptide (0-100) pg/mL Total Protein (6.4-8.2) g/dL Albumin (3.4-5.0) g/dL Urine Color Yellow (Yellw/Straw) Urine Clarity Clear (Clear) Urine pH 6.0 (5.0-8.5) Ur Specific Lueders Less/equal 1.005 (1.002-1.035) Urine Protein Negative (Neg-Trace) mg/dL Urine Glucose (UA) Negative (Negative) mg/dL Urine Ketones Negative (Negative) mg/dL Urine Occult Blood Trace (Negative) Urine Nitrate Negative (Negative) Urine Bilirubin Negative (Negative) Urine Urobilinogen 0.2 (Less than 2) mg/dL Ur Leukocyte Esterase Large H (Negative) Urine RBC 4-15 H (0-3) /hpf Urine WBC Innumerable H (0-5) /hpf Urine WBC Clumps Few H (None) Urine Bacteria Few H (None) /hpf Micro UA Comment Cath-culture ind Ur Microscopic Review Microscopic reviewed Urine Culture Comments Cath-cult indicated Imaging Data Attestation: I personally reviewed and interpreted this imaging study as follows : Radiologist's impression: Chest X-Ray 01/17/18 17:07 CONCLUSION: Streaky opacity at the left lung base which may represent atelectasis or scarring. Discharge Plan Discharge Disposition Patient Disposition: 30 Still Patient Discharge Details Diagnosis: Sepsis, Acute UTI, Chronic kidney disease (CKD) stage G3a/A1, moderately decreased glomerular filtration rate (GFR) between 45-59 mL/min/1.73 square meter and albuminuria creatinine ratio less than 30 mg/g Physicians Team ED Provider: Rajeev García Primary Care Provider: Emigdio Darling Rxs /Orders / Referrals /Forms Prescriptions: No Action Arava 10 mg PO DAILY RF: 0 anastrozole 1 mg Tablet 1 mg PO DAILY RF: 0 gabapentin 600 mg Tablet 600 mg PO TID RF: 0 atorvastatin [Lipitor] 20 mg Tablet 20 mg PO DAILY RF: 0 meloxicam 15 mg Tablet 15 mg PO DAILY RF: 0 alendronate [Fosamax] 70 mg Tablet 70 mg PO QWEEK RF: 0 loratadine-pseudoephedrine [Claritin-D 24 Hour] 10-240 mg Tablet Extended Release 24 Hr 1 tab PO DAILY RF: 0 ergocalciferol (vitamin D2) [Vitamin D2] 50,000 unit Capsule 2,000 unit PO QWEEK RF: 0 oxycodone-acetaminophen 7.5-325 mg Tablet 1 tab PO Q4-6H PRN (Reason: Pain) RF: 0 zolpidem [Ambien] 10 mg Tablet 10 mg PO HS RF: 0 olmesartan [Benicar] 40 mg Tablet 40 mg PO DAILY RF: 0 calcium carbonate-vitamin D3 [Calcium 600 + D(3)] 600 mg calcium- 200 unit Capsule 1 tab PO DAILY RF: 0 amlodipine [Norvasc] 5 mg Tablet 5 mg PO DAILY Qty: 30 RF: 1 Discharge Interventions Interventions: Vital Signs Last Done: 01/17/18 18:23 Status ED Status: With Doctor
[2018-01-17 17:24] LABS: Baso # (Auto) 0.7 th/mm3 (0.0-0.2); Baso % (Auto) 4.8 % (0.0-2.0); Eos # (Auto) 0.1 th/mm3 (0.0-0.4); Eos % (Auto) 0.5 % (0.0-4.0); Hemoglobin 11.4 gm/dL (11.6-15.3); Lymph # (Auto) 0.5 th/mm3 (1.0-4.8); Lymph % (Auto) 3.7 % (9.0-44.0); Mean Corpuscular HGB Conc 32.6 % (32.0-36.0); Mean Platelet Volume 7.6 fL (7.0-11.0); Mono # (Auto) 0.2 th/mm3 (0.0-0.9); Mono % (Auto) 1.1 % (0.0-8.0); Neut # (Auto) 13.2 th/mm3 (1.8-7.7); Neut % (Auto) 89.9 % (16.0-70.0); Platelet Count 321 th/mm3 (150-450); Red Blood Count 3.69 mil/mm3 (4.00-5.30); Red Cell Distribution Width 14.5 % (11.6-17.2); White Blood Count 14.7 th/mm3 (4.0-11.0)
--- NOTE | 2018-01-17 17:33 | XR ---
EXAM DATE: 01/17/2018 5:27 PM EST AGE/SEX: 77 years / Female INDICATIONS: Syncopal episode. CLINICAL DATA: This is the patient's initial encounter. Patient reports that signs and symptoms have been present for 1 day and indicates a pain score of 0/10. MEDICAL/SURGICAL HISTORY: Carcinoma, breast. . Lumpectomy. COMPARISON: [facility], CHEST 1V SINGLE AP, 01/09/2018. . FINDINGS: A single AP view of the chest demonstrates the lungs to be symmetrically aerated without evidence of mass or effusion. There is streaky opacity in the left lung base. The cardiomediastinal contours are unremarkable. Atherosclerotic changes are again noted in the aorta with dilatation. There are trache al calcifications. Osseous structures are intact with postoperative changes again noted in the lumbar spine. Spinal stimulator wires are again noted projected over the lower thoracic spine. CONCLUSION: Streaky opacity at the left lung base which may represent atelectasis or scarring. Electronically signed by: Shubham Wolf MD 01/17/2018 5:32 PM EST
[2018-01-17 17:44] LABS: Chloride 103 meq/L (98-107); Potassium 3.7 meq/L (3.5-5.1); Sodium 136 meq/L (136-145)
[2018-01-17 17:50] LABS: Albumin 3.4 g/dL (3.4-5.0); Anion Gap 10 meq/L (5-15); Blood Urea Nitrogen 15 mg/dL (7-18); Glucose,Random 95 mg/dL (74-106)
[2018-01-17 17:53] LABS: Alanine Aminotransferase 15 U/L (10-53); Aspartate Aminotransferase 21 U/L (15-37); Glomerular Filtration Rate 37 mL/min (>89)
[2018-01-17 17:55] LABS: Total Protein 6.1 g/dL (6.4-8.2)
[2018-01-17 17:56] LABS: Alkaline Phosphatase 48 U/L (45-117)
[2018-01-17 18:25] LABS: Activated Partial Thrombo Time 20.3 sec (23.4-31.7); Prothrombin Time 10.1 sec (9.8-11.6)
[2018-01-17] MEDS ORDERED: Vancomycin Inj 1,000 MG in Sodium Chlor 0.9% Inj 250 ML IV.SIG ONE (18:25)
[2018-01-17] MEDS ORDERED: Sod Chloride 0.9% Inj 1,000 ML IV.SIG SCH (18:30)
[2018-01-17 18:46] LABS: Bilirubin,Urine Negative (Negative); Clarity,Urine Clear (Clear); Color,Urine Yellow (Yellw/Straw); Glucose,Urine (UA) Negative (Negative); Leukocyte Esterase,Urine Large (Negative); Nitrite,Urine Negative (Negative); Specific Gravity,Urine Less/Equal 1.005 (1.002-1.035); Urobilinogen,Urine 0.2 mg/dL (Less than 2)
[2018-01-17 18:53] LABS: Bacteria,Urine Few /hpf; WBC,Urine Innumerable /hpf (0-5)
[2018-01-17] MEDS ORDERED: Acetaminophen 325 MG Tablet PO PRN (19:47)
[2018-01-17] MEDS ORDERED: Vancomycin Consult Pharmacy OTHER PRN (19:51)
[2018-01-17] MEDS: Sod Chloride 0.9% Inj 1,000 ML IV.CONT SCH (19:55)
[2018-01-17] MEDS: Heparin - SQ 10,000 UNITS/ML Vial SQ SCH (20:25)
[2018-01-17] MEDS: Morphine Sulfate Inj 2 MG/ML Vial IV.PUSH PRN (21:06)
[2018-01-18] MEDS: Sod Chloride 0.9% Inj 1,000 ML IV.CONT SCH ×3 (02:40→19:36)
[2018-01-18] MEDS: Morphine Sulfate Inj 2 MG/ML Vial IV.PUSH PRN ×4 (02:48→19:54)
[2018-01-18] MEDS: Heparin - SQ 10,000 UNITS/ML Vial SQ SCH ×3 (04:39→19:48)
[2018-01-18 05:47] LABS: Potassium 3.5 meq/L (3.5-5.1)
[2018-01-18 05:54] LABS: Albumin 2.4 g/dL (3.4-5.0); Calcium 7.1 mg/dL (8.5-10.1); Carbon Dioxide 19.5 meq/L (21.0-32.0)
[2018-01-18 06:04] LABS: Total Protein 4.7 g/dL (6.4-8.2)
--- NOTE | 2018-01-18 13:16 | ECG ---
Date Performed: 01/17/2018 Time Performed: 17:17:00 PTAGE: 77 years EKG: Sinus rhythm POSSIBLE LEFT ATRIAL ENLARGEMENT BORDERLINE ECG Since the PREVIOUS TRACING , no significant change noted PREVIOUS TRACIN01/09/2018 19.10 DOCTOR: Chitra Vallejo Interpretating Date/Time 01/18/2018 13:15:46
[2018-01-18] MEDS ORDERED: Vancomycin Inj 1,250 MG in Sodium Chlor 0.9% Inj 250 ML IV.SIG SCH (14:00)
--- NOTE | 2018-01-18 16:28 | P.HP ---
History of Present Illness Primary Care Physician: Emigdio Darling DO Chief Complaint: Syncope History of Present Illness: 77-year-old female with known history of hypertension, hyperlipidemia , breast cancer, neuropathy who presented to the hospital request of her prior medical doctor because of syncopal episode. Patient states that she has not been feeling well over the last few days and her friend took her to her primary medical doctor's office for evaluation. While she was at her primary medical doctor's office she was not feeling well and she had to go to the bathroom in had an episode of nausea and vomiting. When the patient got up to go check out of the office she got lightheaded, dizzy. She did not feel well and asked for a chair to sit down, next thing she remembers she woke up and went to the exam rooms after she passed out. Patient was then sent to the hospital for evaluation and patient was found to have systolic blood pressure 77/38, findings indicating sepsis with leukocytosis, lactic acidosis, urinary tract infection. Patient was given 2 boluses of normal saline. Started on empirical antibiotics to include vancomycin and cefepime. Chest x-ray did not indicate any pneumonia, urinalysis does indicate urinary tract infection. Patient does have recent admission to the hospital 8 days ago, during that hospitalization she did have hypotension at that time, as well as Lynn catheter placement. Patient did not have a urinary tract infection during that hospitalization. Patient does appear to look much better today after IV hydration and antibiotics. Patient denies any fever, chills, chest pain, lightheadedness, dizziness. He does complain of pain radiating into her left groin. Inpatient Certification: I certify that the inpatient services were ordered in accordance with Medicare regulations governing the order. This includes certification that hospital inpatient services are reasonable and necessary and in the case of services not specified as inpatient-only under 42 CFR 419.22(n), that they are appropriately provided as inpatient services in accordance to with the 2-midnight benchmark under 43 CFR 412.3(e) Estimated Total Length of Stay (Days): 2 Plans for Post Hospital Care: Home Review of Systems All other systems reviewed negative except as stated in HPI Constitutional: Reports weakness Neurologic: Reports fainting PMFSH - History History Provided By: Patient - Medical History Medical History: Medical History (Last Reviewed 01/18/18 @ 16:21 by ADELINE Munson) Arthritis Back pain Breast cancer Cancer Hyperlipidemia Hypertension Neuropathy - Surgical History Surgical History: Surgical History (Last Reviewed 01/18/18 @ 16:21 by ADELINE Munson) History of hip surgery Hx of appendectomy Previous back surgery Total knee replacement status - Family History Family History: Family History (Last Reviewed 01/18/18 @ 16:21 by ADELINE Munson) Father Family history of colon cancer Mother Family history of multiple myeloma - Tobacco History Second Hand Smoke Exposure: No Smoking Status: Never smoker - Alcohol History How Often Do You Have a Drink Containing Alcohol: Monthly or less - Substance Use History Substance History: No History of Abuse - Travel History Recent Travel in the [place] Within the Last 8 Weeks: No Recent Travel Out of the Country Within the Last 8 Weeks: No - Immunization History Tetanus Immunization: Unsure Hx Influenza Vaccine This Season: Yes Medications and Allergies Active Medications: Active Medications Acetaminophen (Tylenol) 650 mg PO Q4H PRN PRN Reason: Temp > 100.4 Heparin Sodium (Porcine) (Heparin Inj) 5,000 units SQ Q8H [facility] Last Admin: 01/18/18 12:00 Dose: 5,000 units Sodium Chloride (Ns Inj) 1,000 mls @ 125 mls/hr IV.CONT .Q8H [facility] Last Admin: 01/18/18 10:55 Dose: 125 mls/hr Cefepime HCl 1,000 mg/ Sodium (Chloride) 100 mls @ 200 mls/hr IV.SIG Q8H [facility] Last Infusion: 01/18/18 11:31 Dose: Infused Vancomycin HCl 1,250 mg/ (Sodium Chloride) 262.5 mls @ 250 mls/hr IV.SIG Q24H [facility] Last Infusion: 01/18/18 14:35 Dose: Infused Miscellaneous Information ([facility] Ordered Lab Info) 0 each OTHER ONCE ONE Stop: 01/21/18 13:46 Morphine Sulfate (Morphine Inj) 2 mg IV.PUSH Q4H PRN PRN Reason: pain 6-10 Last Admin: 01/18/18 08:21 Dose: 2 mg Ondansetron HCl (Zofran Inj) 4 mg IV.PUSH Q6H PRN PRN Reason: NAUSEA OR VOMITING Pharmacy Profile Note (Vancomycin Consult Pharmacy) 1 each OTHER UNSCH PRN PRN Reason: Pharmacy to dose Allergies Allergy/AdvReac Type Severity Reaction Status Date / Time No Known Allergies Allergy Verified 01/17/18 17:06 Home Medications Medication Instructions Recorded Confirmed Type Arava 10 mg PO DAILY 12/05/17 01/17/18 History alendronate [Fosamax] 70 mg PO QWEEK 12/05/17 01/17/18 History anastrozole 1 mg PO DAILY 12/05/17 01/17/18 History atorvastatin [Lipitor] 20 mg PO DAILY 12/05/17 01/17/18 History calcium carbonate-vitamin D3 1 tab PO DAILY 12/05/17 01/17/18 History [Calcium 600 + D(3)] ergocalciferol (vitamin D2) 2,000 unit PO QWEEK 12/05/17 01/17/18 History [Vitamin D2] gabapentin 600 mg PO TID 12/05/17 01/17/18 History loratadine-pseudoephedrine 1 tab PO DAILY 12/05/17 01/17/18 History [Claritin-D 24 Hour] meloxicam 15 mg PO DAILY 12/05/17 01/17/18 History olmesartan [Benicar] 40 mg PO DAILY 12/05/17 01/17/18 History oxycodone-acetaminophen 1 tab PO Q4-6H PRN 12/05/17 01/17/18 History zolpidem [Ambien] 10 mg PO HS 12/05/17 01/17/18 History leflunomide 10 mg PO DAILY 01/18/18 01/18/18 History Exam Vital signs: Vital Signs 01/17/18 16:50 01/17/18 17:07 01/17/18 17:39 Temperature 97.7 F Pulse Rate 87 96 H Respiratory Rate 16 Blood Pressure 77/38 L 101/58 L Pulse Oximetry 93 L 98 95 01/17/18 18:23 01/17/18 19:38 01/17/18 20:00 Temperature 98.0 F Pulse Rate 86 86 96 H Respiratory Rate 18 18 Blood Pressure 98/49 L 110/60 Pulse Oximetry 96 01/17/18 20:27 01/17/18 22:12 01/17/18 23:00 Temperature 98.6 F Pulse Rate 84 82 96 H Respiratory Rate 18 18 20 Blood Pressure 116/58 L 100/50 L 116/57 L Pulse Oximetry 100 98 96 01/18/18 00:00 01/18/18 00:06 01/18/18 01:00 Temperature 98.6 F 98.6 F Pulse Rate 90 90 90 Respiratory Rate 18 12 Blood Pressure 106/50 L 106/50 L 97/50 L Pulse Oximetry 96 96 96 01/18/18 02:00 01/18/18 03:00 01/18/18 04:00 Temperature 97.9 F Pulse Rate 92 H 92 H 100 H Respiratory Rate 28 H 32 H 34 H Blood Pressure 114/57 L 106/59 L 118/71 Pulse Oximetry 97 97 81 L 01/18/18 08:00 01/18/18 11:18 Temperature 99.1 F 98.7 F Pulse Rate Respiratory Rate Blood Pressure Pulse Oximetry Intake & Output 01/17/18 01/18/18 01/18/18 18:59 06:59 18:59 Intake Total 1000 / 1000 2450 / 2450 1962.5 / 1962.5 Output Total 400 / 400 400 / 400 700 / 700 Balance 600 / 600 205 / 0 1262.5 / 1262.5 Weight 87 kg 67.1 kg Intake: IV 1000 / 1000 2450 / 2450 1362.5 / 1362.5 NS Inj 1,000 ML @ 125 mls/hr IV 1000 / 1000 1000 / 1000 .CONT .Q8H [facility] Rx#:[id number] Maxipime Inj 1,000 MG In NS Inj 200 / 200 100 / 100 100 ML @ 200 mls/hr IV.SIG Q8H [facility] Rx#:[id number] NS Inj 1,000 ML @ 1000 mls/hr 1000 / 1000 1000 / 1000 IV.SIG BOLUS [facility] Rx#:[id number] Vancomycin Inj 1,000 MG In NS 250 / 250 Inj 250 ML @ 250 mls/hr IV.SIG ONCE ONE Rx#:[id number] Vancomycin Inj 1,250 MG In NS 262.5 / 262.5 Inj 250 ML @ 250 mls/hr IV.SIG Q24H [facility] Rx#:[id number] Oral 600 / 600 Output: Urine 400 / 400 700 / 700 Urine Amount (Catheter) 400 / 400 Straight 400 / 400 Other: Date of Last Bowel Movement 01/18/18 Weight On Admission 61.7 kg Narrative: GENERAL: Well-developed, well-nourished, in no acute distress. alert and orientated HEENT: Head is normocephalic without any lesions or masses noted. Facial features are symmetric. Eyes: Pupils equal round reactive to light. Extraocular muscles are intact. Conjunctivae were clear. Oropharyngeal: Pharynx without any erythema edema. Tongue is midline without deviation. Buccal mucosa is moist without any masses or lesions NECK: Supple without any masses. Trachea midline no deviation. No JVD, no bruits are appreciated CARDIAC: Regular rhythm, regular rate. S1/S2 are heard. No murmurs gallops or rubs. LUNGS: Clear to auscultation bilaterally. No wheeze, rhonchi or rales. No use of accessory muscles on inspiration or expiration. ABDOMEN: Soft, nontender. Nondistended. Bowel sounds heard in all 4 quadrants. No organomegaly or masses. Negative rebound, negative guarding EXTREMITIES: No edema, pulses are equal bilaterally. No cyanosis or clubbing NEUROLOGY: Mood and affect appear appropriate. Cranial nerves II through XII grossly intact. Muscle strength 5/5 in upper and lower extremities bilaterally. Deep tendon reflexes are 2+ in upper and lower extremities bilaterally. Results - Labs CBC & Chem 7: 01/17/18 17:00 01/18/18 04:55 Labs: Laboratory Results - last 24 hr 01/17/18 01/17/18 01/17/18 17:00 17:00 17:00 CBC w Diff Auto diff final WBC 14.7 H RBC 3.69 L Hgb 11.4 L Hct 35.0 MCV 95.0 MCH 31.0 MCHC 32.6 RDW 14.5 Plt Count 321 D MPV 7.6 Neut % (Auto) 89.9 H Lymph % (Auto) 3.7 L Cocke % (Auto) 1.1 Eos % (Auto) 0.5 Baso % (Auto) 4.8 H Neut # (Auto) 13.2 H Lymph # (Auto) 0.5 L Cocke # (Auto) 0.2 Eos # (Auto) 0.1 Baso # (Auto) 0.7 H WBC Differential . Differential Comment . PT 10.1 INR 1.0 APTT 20.3 L Sodium 136 Potassium 3.7 Chloride 103 Carbon Dioxide 23.0 Anion Gap 10 BUN 15 Creatinine 1.40 H Estimated GFR 37 L POC Glucose Random Glucose 95 Lactic Acid Calcium 8.0 L Prot Corrected Calcium Total Bilirubin 0.8 AST 21 ALT 15 Alkaline Phosphatase 48 Troponin I Less than 0.02 L B-Natriuretic Peptide Total Protein 6.1 L Albumin 3.4 Urine Color Urine Clarity Urine pH Ur Specific Hazen Urine Protein Urine Glucose (UA) Urine Ketones Urine Occult Blood Urine Nitrate Urine Bilirubin Urine Urobilinogen Ur Leukocyte Esterase Urine RBC Urine WBC Urine WBC Clumps Urine Bacteria Micro UA Comment Ur Microscopic Review Urine Culture Comments Nasal Screen MRSA (PCR) 01/17/18 01/17/18 01/17/18 17:00 17:07 17:25 CBC w Diff WBC RBC Hgb Hct MCV MCH MCHC RDW Plt Count MPV Neut % (Auto) Lymph % (Auto) Cocke % (Auto) Eos % (Auto) Baso % (Auto) Neut # (Auto) Lymph # (Auto) Cocke # (Auto) Eos # (Auto) Baso # (Auto) WBC Differential Differential Comment PT INR APTT Sodium Potassium Chloride Carbon Dioxide Anion Gap BUN Creatinine Estimated GFR POC Glucose 87 Random Glucose Lactic Acid 2.5 H Calcium Prot Corrected Calcium Total Bilirubin AST ALT Alkaline Phosphatase Troponin I B-Natriuretic Peptide 26 Total Protein Albumin Urine Color Urine Clarity Urine pH Ur Specific Hazen Urine Protein Urine Glucose (UA) Urine Ketones Urine Occult Blood Urine Nitrate Urine Bilirubin Urine Urobilinogen Ur Leukocyte Esterase Urine RBC Urine WBC Urine WBC Clumps Urine Bacteria Micro UA Comment Ur Microscopic Review Urine Culture Comments Nasal Screen MRSA (PCR) 01/17/18 01/18/18 01/18/18 18:43 04:55 06:30 CBC w Diff WBC RBC Hgb Hct MCV MCH MCHC RDW Plt Count MPV Neut % (Auto) Lymph % (Auto) Cocke % (Auto) Eos % (Auto) Baso % (Auto) Neut # (Auto) Lymph # (Auto) Cocke # (Auto) Eos # (Auto) Baso # (Auto) WBC Differential Differential Comment PT INR APTT Sodium 138 Potassium 3.5 Chloride 108 H Carbon Dioxide 19.5 L Anion Gap 11 BUN 15 Creatinine 0.95 Estimated GFR 57 L POC Glucose Random Glucose 80 Lactic Acid Calcium 7.1 L* D Prot Corrected Calcium 8.4 L Total Bilirubin 0.9 AST 14 L ALT 13 Alkaline Phosphatase 37 L Troponin I B-Natriuretic Peptide Total Protein 4.7 L D Albumin 2.4 L D Urine Color Yellow Urine Clarity Clear Urine pH 6.0 Ur Specific Hazen Less/equal 1.005 Urine Protein Negative Urine Glucose (UA) Negative Urine Ketones Negative Urine Occult Blood Trace Urine Nitrate Negative Urine Bilirubin Negative Urine Urobilinogen 0.2 Ur Leukocyte Esterase Large H Urine RBC 4-15 H Urine WBC Innumerable H Urine WBC Clumps Few H Urine Bacteria Few H Micro UA Comment Cath-culture ind Ur Microscopic Review Microscopic reviewed Urine Culture Comments Cath-cult indicated Nasal Screen MRSA (PCR) Not detected - Imaging Impressions Chest X-Ray 01/17/18 17:07 CONCLUSION: Streaky opacity at the left lung base which may represent atelectasis or scarring. Caprini VTE Risk Assessment Caprini VTE Risk Assessment: Moderate/High Risk (score >= 2) Caprini Risk Assessment Model: Point Value = 1 Point Value = 2 Point Value = 3 Point Value = 5 Age 41-60 Minor surgery BMI > 25 kg/m2 Swollen legs Varicose veins or History of unexplained or recurrent spontaneous Oral contraceptives or hormone replacement Sepsis (< 1 month) Serious lung disease, including pneumonia (< 1 month) Abnormal pulmonary function Acute myocardial infarction Congestive heart failure (< 1 month) History of inflammatory bowel disease Medical patient at bed rest Age 61-74 Arthroscopic surgery Major open surgery (> 45 min) Laparoscopic surgery (> 45 min) Malignancy Confined to bed (> 72 hours) Immobilizing plaster cast Central venous access Age >= 75 History of VTE Family history of VTE Factor V Leiden Prothrombin [id number] Lupus anticoagulant Anticardiolipin antibodies Elevated serum homocysteine Heparin-induced thrombocytopenia Other congenital or acquired thrombophilia Stroke (< 1 month) Elective arthroplasty Hip, pelvis, or leg fracture Acute spinal cord injury (< 1 month) Prophylaxis Regimen: Total Risk Factor Score Risk Level Prophylaxis Regimen 0-1 Low Early ambulation 2 Moderate Order ONE of the following: *Sequential Compression Device (SCD) *Heparin 5000 units SQ BID 3-4 Higher Order ONE of the following medications: *Heparin 5000 units SQ TID *Enoxaparin/Lovenox 40 mg SQ daily (WT < 150 kg, CrCl > 30 mL/min) *Enoxaparin/Lovenox 30 mg SQ daily (WT < 150 kg, CrCl > 10-29 mL/min) *Enoxaparin/Lovenox 30 mg SQ BID (WT < 150 kg, CrCl > 30 mL/min) AND/OR *Sequential Compression Device (SCD) 5 or more Highest Order ONE of the following medications: *Heparin 5000 units SQ TID (Preferred with Epidurals) *Enoxaparin/Lovenox 40 mg SQ daily (WT < 150 kg, CrCl > 30 mL/min) *Enoxaparin/Lovenox 30 mg SQ daily (WT < 150 kg, CrCl > 10-29 mL/min) *Enoxaparin/Lovenox 30 mg SQ BID (WT < 150 kg, CrCl > 30 mL/min) AND *Sequential Compression Device (SCD) Assessment and Plan - Plan Severe sepsis -Patient met criteria on admission with leukocytosis, tachycardia, lactic acidosis, tachypnea, hypotension, urinary tract infection -Patient started on empiric antibiotics to include vancomycin, cefepime, will need to cover for hospital-acquired Lynn catheter infection -Continue to follow urine culture for appropriate antibiotics -Blood cultures are negative for 1 day -Status post 2 L normal saline bolus -Continue fluid resuscitation Syncopal episode -Likely secondary to vasovagal reaction, hypotension, orthostasis -Obtain CT of the brain to rule out any intracranial abnormality Hypertension -Blood pressure medication has been held at this time due to hypotension -Resume home medications once blood pressure improves Hyperlipidemia -Continue home medications History of breast cancer -Home medication continued Chronic back pain with neuropathy -We will hold chronic pain medication at this time due to patient's presenting symptoms DVT prevention -Sequential compression devices
[2018-01-18 17:05] LABS: Baso % (Auto) 0.4 % (0.0-2.0); Eos # (Auto) 0.1 th/mm3 (0.0-0.4); Eos % (Auto) 1.9 % (0.0-4.0); Hematocrit 29.4 % (35.0-46.0); Hemoglobin 9.7 gm/dL (11.6-15.3); Lymph # (Auto) 0.9 th/mm3 (1.0-4.8); Lymph % (Auto) 14.2 % (9.0-44.0); Mean Corpuscular HGB Conc 33.2 % (32.0-36.0); Mean Corpuscular Hemoglobin 31.1 pg (27.0-34.0); Mean Corpuscular Volume 93.6 fL (80.0-100.0); Mean Platelet Volume 7.2 fL (7.0-11.0); Mono # (Auto) 0.2 th/mm3 (0.0-0.9); Mono % (Auto) 3.7 % (0.0-8.0); Neut # (Auto) 5.3 th/mm3 (1.8-7.7); Neut % (Auto) 79.8 % (16.0-70.0); Platelet Count 199 th/mm3 (150-450); Red Blood Count 3.14 mil/mm3 (4.00-5.30); Red Cell Distribution Width 14.2 % (11.6-17.2); White Blood Count 6.5 th/mm3 (4.0-11.0)
[2018-01-18 17:16] LABS: Potassium 3.7 meq/L (3.5-5.1)
[2018-01-18 17:33] LABS: Albumin 2.7 g/dL (3.4-5.0); Calcium 7.4 mg/dL (8.5-10.1); Carbon Dioxide 20.8 meq/L (21.0-32.0); Total Protein 5.4 g/dL (6.4-8.2)
--- NOTE | 2018-01-18 17:48 | CT ---
EXAM DATE: 01/18/2018 5:44 PM EST AGE/SEX: 77 years / Female INDICATIONS: Syncope. CLINICAL DATA: This is the patient's initial encounter. Patient reports that signs and symptoms have been present for 1 day and indicates a pain score of 0/10. MEDICAL/SURGICAL HISTORY: Carcinoma, breast. Hypertension. Appendectomy. Orthopedic surgery. RADIATION DOSE: 54.27 CTDI (mGy) COMPARISON: [facility], CT HEAD W/O CONTRAST, 01/09/2018. . TECHNIQUE: CT of the head without contrast. Using automated exposure control and adjustment of the mA and/or kV according to patient size, radiation dose was kept as low as reasonably achievable to ob tain optimal diagnostic quality images. DICOM format image data is available electronically for revi ew and comparison. FINDINGS: Cerebrum: The ventricles are normal for age. No evidence of midline shift, mass lesion, hemorrhage or acute infarction. No extraaxial fluid collections are seen. Posterior Fossa: The cerebellum and brainstem are intact. The 4th ventricle is midline. The cerebe llopontine angle is unremarkable. Extracranial: The visualized portion of the orbits is intact. Skull: The calvaria is intact. No evidence of skull fracture. CONCLUSION: 1. Stable negative noncontrast head CT. . Electronically signed by: Shubham Wolf MD 01/18/2018 5:47 PM EST
[2018-01-18 20:59] VITALS: RESP 18
[2018-01-19 00:05] VITALS: PULSE 93
[2018-01-19] MEDS: Morphine Sulfate Inj 2 MG/ML Vial IV.PUSH PRN ×2 (01:33→05:55)
[2018-01-19] MEDS: Sod Chloride 0.9% Inj 1,000 ML IV.CONT SCH ×3 (03:23→09:37)
[2018-01-19] MEDS: Heparin - SQ 10,000 UNITS/ML Vial SQ SCH (04:26)
[2018-01-19 05:34] LABS: Baso # (Auto) 0.1 th/mm3 (0.0-0.2); Baso % (Auto) 2.3 % (0.0-2.0); Eos # (Auto) 0.2 th/mm3 (0.0-0.4); Eos % (Auto) 4.9 % (0.0-4.0); Hemoglobin 9.6 gm/dL (11.6-15.3); Lymph % (Auto) 26.6 % (9.0-44.0); Mean Corpuscular HGB Conc 33.3 % (32.0-36.0); Mean Corpuscular Hemoglobin 31.4 pg (27.0-34.0); Mean Corpuscular Volume 94.3 fL (80.0-100.0); Mean Platelet Volume 8.1 fL (7.0-11.0); Mono # (Auto) 0.2 th/mm3 (0.0-0.9); Neut # (Auto) 2.4 th/mm3 (1.8-7.7); Neut % (Auto) 60.2 % (16.0-70.0); Platelet Count 161 th/mm3 (150-450); Red Blood Count 3.07 mil/mm3 (4.00-5.30); Red Cell Distribution Width 14.6 % (11.6-17.2); White Blood Count 3.9 th/mm3 (4.0-11.0)
[2018-01-19 05:42] LABS: Chloride 110 meq/L (98-107); Potassium 3.3 meq/L (3.5-5.1); Sodium 141 meq/L (136-145)
[2018-01-19 05:46] LABS: Albumin 2.6 g/dL (3.4-5.0); Anion Gap 12 meq/L (5-15); Calcium 7.7 mg/dL (8.5-10.1); Carbon Dioxide 19.3 meq/L (21.0-32.0); Glucose,Random 83 mg/dL (74-106)
[2018-01-19 05:47] LABS: Blood Urea Nitrogen 9 mg/dL (7-18)
[2018-01-19 05:49] LABS: Alanine Aminotransferase 12 U/L (10-53); Aspartate Aminotransferase 14 U/L (15-37)
[2018-01-19 05:50] LABS: Glomerular Filtration Rate 74 mL/min (>89)
[2018-01-19 05:51] LABS: Total Protein 5.4 g/dL (6.4-8.2)
[2018-01-19 05:52] LABS: Alkaline Phosphatase 39 U/L (45-117)
[2018-01-19 09:03] VITALS: TEMP 96.9; O2SAT 97
--- NOTE | 2018-01-19 09:55 | P.DCO ---
- Diagnosis (1) Physical deconditioning Status: Acute (2) Acute UTI Status: Acute (3) Sepsis Status: Acute - Physical Therapy Order: Evaluate and treat, Improve ambulation, Strength and gait training - Home Health Nursing Order: Medical education, Signs/symptoms of disease process, Nursing assessment with vital signs - Case Management Consult Case Management Consult-Home Health: Yes - Certification I have seen patient Nadira Charles on 01/19/18. My clinical findings support the need for the requested home health care services because: Deconditioned with increased weakness I certify that my clinical findings support that this patient is homebound because: Unsteady gait/balance, Unsafe to leave home unassisted (3) Sepsis Qualifiers: Sepsis type: sepsis due to unspecified organism Qualified Code(s): A41.9 - Sepsis, unspecified organism
--- NOTE | 2018-01-19 09:58 | P.PNIM ---
Subjective Interval history: 77-year-old female who is seen examined today for follow-up on sepsis secondary to urinary tract infection. Patient is doing much better. She remains afebrile. White count has returned to normal. Patient states that she is ready to go home. Discussed with her the clinical condition of her urinary tract infection causing her presenting symptoms. Patient does understand. Patient be discharged home with resumption of her home health care. Vital signs are stable. Physical Exam Vital signs: Vital Signs 01/18/18 10:00 01/18/18 11:00 01/18/18 11:18 Temperature 98.7 F Pulse Rate 98 H 94 H Respiratory Rate 16 4 L Blood Pressure 139/67 126/52 L Pulse Oximetry 96 97 01/18/18 12:00 01/18/18 13:00 01/18/18 14:00 Temperature Pulse Rate 96 H 100 H 108 H Respiratory Rate 18 17 36 H Blood Pressure 134/89 109/50 L 123/79 Pulse Oximetry 96 95 94 L 01/18/18 15:00 01/18/18 16:00 01/18/18 20:00 Temperature 97.4 F L 97.8 F Pulse Rate 94 H 92 H 88 Respiratory Rate 21 20 18 Blood Pressure 126/64 140/70 177/75 H Pulse Oximetry 94 L 95 97 01/18/18 20:45 01/19/18 00:00 01/19/18 01:54 Temperature 97.5 F L Pulse Rate 90 93 H Respiratory Rate 18 18 Blood Pressure 96/64 L Pulse Oximetry 94 L 01/19/18 04:00 01/19/18 04:49 01/19/18 06:23 Temperature 96.3 F L Pulse Rate 86 93 H Respiratory Rate 18 18 Blood Pressure 132/76 Pulse Oximetry 93 L 01/19/18 08:00 Temperature 96.9 F L Pulse Rate 93 H Respiratory Rate 18 Blood Pressure Pulse Oximetry 97 Intake & Output 01/18/18 01/19/18 01/19/18 18:59 06:59 18:59 Intake Total 3182.5 / 3182.5 1340 / 1340 820 / 820 Output Total 1000 / 1000 Balance 2182.5 / 2182.5 1340 / 1340 820 / 820 Weight 67.9 kg Intake: IV 2462.5 / 2462.5 1100 / 1100 820 / 820 NS Inj 1,000 ML @ 84 mls/hr IV. 1999 / 1999 1000 / 1000 820 / 820 CONT .[id number] MARIANO Rx#: [id number] Maxipime Inj 1,000 MG In NS Inj 200 / 200 100 / 100 100 ML @ 200 mls/hr IV.SIG Q8H MARIANO Rx#:[id number] Vancomycin Inj 1,250 MG In NS 262.5 / 262.5 Inj 250 ML @ 250 mls/hr IV.SIG Q24H MARIANO Rx#:[id number] Oral 720 / 720 240 / 240 Output: Urine 1000 / 1000 Other: # Voids 4 Date of Last Bowel Movement 01/18/18 01/18/18 01/18/18 Narrative: GENERAL: Well-developed, well-nourished, in no acute distress. alert and orientated HEENT: Head is normocephalic without any lesions or masses noted. Facial features are symmetric. Eyes: Extraocular muscles are intact. Conjunctivae were clear. NECK: Supple without any masses. Trachea midline no deviation. No JVD, CARDIAC: Regular rhythm, regular rate. S1/S2 are heard. No murmurs gallops or rubs. LUNGS: Clear to auscultation bilaterally. No wheeze, rhonchi or rales. No use of accessory muscles on inspiration or expiration. ABDOMEN: Soft, nontender. Nondistended. Bowel sounds heard in all 4 quadrants. No organomegaly or masses. Negative rebound, negative guarding EXTREMITIES: No edema, pulses are equal bilaterally. No cyanosis or clubbing NEUROLOGY: Mood and affect appear appropriate. Cranial nerves II through XII grossly intact. Moving all extremities, speech is clear - Urinary Catheter Management Straight Cath placed during this visit: yes, but has since been removed by the nurse Reason for continuing: Not indwelling catheter Insertion date: 01/17/18 Insertion time: 18:45 Removal time: 18:42 Results - Labs CBC & Chem 7: 01/19/18 04:25 01/19/18 04:25 Laboratory Results - last 24 hr 01/18/18 01/18/18 01/18/18 06:30 16:55 16:55 CBC w Diff Auto diff final WBC 6.5 D RBC 3.14 L Hgb 9.7 L Hct 29.4 L MCV 93.6 MCH 31.1 MCHC 33.2 RDW 14.2 Plt Count 199 D MPV 7.2 Neut % (Auto) 79.8 H Lymph % (Auto) 14.2 Woodward % (Auto) 3.7 Eos % (Auto) 1.9 Baso % (Auto) 0.4 Neut # (Auto) 5.3 Lymph # (Auto) 0.9 L Woodward # (Auto) 0.2 Eos # (Auto) 0.1 Baso # (Auto) 0.0 WBC Differential . Differential Comment . Sodium 139 Potassium 3.7 Chloride 109 H Carbon Dioxide 20.8 L Anion Gap 9 BUN 14 Creatinine 0.83 Estimated GFR 67 L Random Glucose 92 Lactic Acid Calcium 7.4 L* Prot Corrected Calcium 8.3 L Total Bilirubin 0.5 AST 14 L ALT 14 Alkaline Phosphatase 41 L Total Protein 5.4 L D Albumin 2.7 L Nasal Screen MRSA (PCR) Not detected 01/18/18 01/19/18 01/19/18 16:55 04:25 04:25 CBC w Diff Auto diff final WBC 3.9 L RBC 3.07 L Hgb 9.6 L Hct 29.0 L MCV 94.3 MCH 31.4 MCHC 33.3 RDW 14.6 Plt Count 161 MPV 8.1 Neut % (Auto) 60.2 Lymph % (Auto) 26.6 Woodward % (Auto) 6.0 Eos % (Auto) 4.9 H Baso % (Auto) 2.3 H Neut # (Auto) 2.4 Lymph # (Auto) 1.0 Woodward # (Auto) 0.2 Eos # (Auto) 0.2 Baso # (Auto) 0.1 WBC Differential . Differential Comment . Sodium 141 Potassium 3.3 L Chloride 110 H Carbon Dioxide 19.3 L Anion Gap 12 BUN 9 Creatinine 0.76 Estimated GFR 74 L Random Glucose 83 Lactic Acid 0.8 Calcium 7.7 L Prot Corrected Calcium Total Bilirubin 0.6 AST 14 L ALT 12 Alkaline Phosphatase 39 L Total Protein 5.4 L Albumin 2.6 L Nasal Screen MRSA (PCR) Microbiology 01/17/18 18:43 Catheterized Urine Urine Culture - Preliminary Immature growth - reincubate 01/17/18 17:25 Blood - Peripheral Aerobic Blood Culture - Preliminary No growth in 1 day 01/17/18 17:25 Blood - Peripheral Anaerobic Blood Culture - Preliminary No growth in 1 day 01/17/18 17:30 Blood - Peripheral Aerobic Blood Culture - Preliminary No growth in 1 day 01/17/18 17:30 Blood - Peripheral Anaerobic Blood Culture - Preliminary No growth in 1 day - Imaging Impressions Head CT 01/18/18 16:29 CONCLUSION: 1. Stable negative noncontrast head CT. . Assessment and Plan - Assessment (1) Physical deconditioning Code(s): R53.81 - Other malaise Status: Acute (2) Acute UTI Code(s): N39.0 - Urinary tract infection, site not specified Status: Acute (3) Sepsis Code(s): A41.9 - Sepsis, unspecified organism Status: Acute - Plan Severe sepsis, resolved -Patient met criteria on admission with leukocytosis, tachycardia, lactic acidosis, tachypnea, hypotension, urinary tract infection -Patient started on empiric antibiotics to include vancomycin, cefepime, will need to cover for hospital-acquired Lynn catheter infection -Urine culture did indicate Enterococcus faecalis -Blood cultures are negative for 3 day -Status post 2 L normal saline bolus -Continue IV fluids -patient was discharged home on ampicillin Syncopal episode -Likely secondary to vasovagal reaction, hypotension, orthostasis -CT of brain did not indicate any acute abnormality Hypertension -Blood pressure medication has been held at this time due to hypotension -Resume home medications once blood pressure improves Hyperlipidemia -Continue home medications History of breast cancer -Home medication continued Chronic back pain with neuropathy -Resume home medications upon discharge DVT prevention -Sequential compression devices Discharge Planning: Discharge home in stable condition Activity: Ad rian. Diet: Healthy heart diet Medication per medication reconciliation Follow-up with primary medical doctor in 1 week (3) Sepsis Qualifiers: Sepsis type: sepsis due to unspecified organism Qualified Code(s): A41.9 - Sepsis, unspecified organism
[2018-01-19 10:11] VITALS: BP 140/80
[2018-01-19] MEDS ORDERED: amLODIPine 5 MG Tablet PO SCH (10:15)
[2018-01-19] MEDS ORDERED: Gabapentin 300 MG Capsule PO SCH (13:00)
[2018-01-21] MEDS ORDERED: VANCOMYCIN TROUGH OTHER ONE (13:45)
== END 2018-01-19 11:01 | disposition home health service (06) ==
LOC: PHED 16:47 → PHEDA 19:48 → PHICU 22:39 → PH3 01-18 18:43
PROVIDERS: ADMIT Hospitalist; ATTEND Hospitalist
CPT/HCPCS: 70450; 71010; 71045; 80053; 81001; 82948; 82962; 83520; 83605; 83880; 84484; 85025; 85610; 85730; 87040; 87077; 87086; 87186; 87641; 93005; 97110; 97116; 97162; J0692; J1644; J2270; J3370; J7030; J7050